=== PATIENT | male | born 1960 | race Caucasian/White ===

== ENCOUNTER 2017-01-17 16:15 | Inpatient (IN) | payer MEDICARE ==
[2017-01-17] MEDS ORDERED: Aspirin 325 MG TAB ONE (16:40)
[2017-01-17] MEDS ORDERED: Acetaminophen 500 MG TAB ONE (16:40)
[2017-01-17 16:42] LABS: #Eosinphils 0.7 thou/uL (0.0-0.7); #Lymphocytes 1.9 thou/uL (1.20-3.40); #Monocytes 0.7 thou/uL (0.11-0.59); #Neutrophils 4.6 thou/uL (1.40-6.50); %Basophils 0.3 % (0.0-1.0); %Eosinophils 8.8 % (0.0-10.0); %Lymphocytes 24.2 % (21.0-51.0); %Monocytes 8.2 % (0.0-10.0); Hematocrit 37.7 % (42.0-52.0); Mean Platelet Volume 6.8 fL (7.4-10.4); Red Blood Cell (RBC) Count 3.76 mill/uL (4.70-6.10); White Blood Cell (WBC) Count 7.9 thou/uL (4.8-10.8)
[2017-01-17 16:59] LABS: Lactic Acid - Sepsis 1.8 mmol/L (0.5-2.2)
[2017-01-17 17:03] LABS: ALT (SGPT) 12 U/L (8-55); AST (SGOT) 18 U/L (5-34); Alkaline Phosphatase 132 U/L (40-150); Anion Gap 16 mmol/L (10-20); BUN (Urea Nitrogen) 10 mg/dL (8.4-25.7); Bilirubin, Total 0.5 mg/dL (0.2-1.2); CK (CPK) 94 U/L (30-200); Calc. Creatinine Clearance 0 mL/min (70-130); Carbon Dioxide 22 mmol/L (22-29); Chloride 106 mmol/L (98-107); Estimated GFR-MDRD Greater than 90; Globulin 3.4 g/dL (2.4-3.5); Protein, Total 6.9 g/dL (6.0-8.3)
[2017-01-17 17:07] LABS: Troponin I Less than 0.010 ng/mL (< 0.028)
--- NOTE | 2017-01-17 17:26 | RAD ---
EXAM: ONE VIEW CHEST 01/17/17 HISTORY: Chest pain and shortness of breath. COMPARISON: 01/13/17. FINDINGS: Portable upright chest demonstrates a normal cardiac silhouette. Pulmonary vessels and hilum are nor mal. The costophrenic angles are clear. No mass. No consolidation. No pneumothorax. Chronic changes of the left clavicle are noted. IMPRESSION: No acute cardiopulmonary process. POS: [facility]
[2017-01-17] MEDS ORDERED: Azithromycin 500 MG in Sodium Chloride 0.9% 250 ML 250 ML IVPB SCH (17:45)
[2017-01-17 17:51] LABS: Bilirubin Negative (Negative); Blood, Urine Trace (Negative); Glucose, Urine (Dipstick) Negative (Negative); Ketone, Urine Trace mg/dL (Negative); Nitrite Negative (Negative); Protein, Urine (Dipstick) Negative (Neg-Trace); Urobilinogen 0.2 mg/dL (0.2-1.0)
[2017-01-17 17:53] LABS: Bacteria/HPF None Seen HPF (None Seen); Hyaline Casts/LPF 4-6 HYALINE CAST LPF (0-3 Hyaline); Squamous Epithelial None Seen HPF (0-3); WBC/HPF 0-3 HPF (0-3)
[2017-01-17] MEDS ORDERED: Azithromycin 500 MG VIAL ONE (18:20)
[2017-01-17 20:08] LABS: Troponin I Less than 0.010 ng/mL (< 0.028)
[2017-01-17] MEDS ORDERED: Acetaminophen 325 MG TAB PO PRN (20:40)
[2017-01-17 20:41] VITALS: BMI 31.1
[2017-01-17] MEDS ORDERED: Benzonatate 100 MG CAP PO PRN (21:25)
[2017-01-17] MEDS ORDERED: Nitroglycerin 0.4 MG TAB (25 Tab Bottle) SL SCH (21:30)
[2017-01-17] MEDS ORDERED: guaiFENesin ER 600 MG TAB PO PRN (21:48)
[2017-01-17] MEDS ORDERED: Gabapentin 300 MG CAP PO SCH (22:30)
[2017-01-17] MEDS ORDERED: Atorvastatin Calcium 40 MG TAB PO SCH (22:30)
[2017-01-17] MEDS ORDERED: Cyclobenzaprine 10 MG TAB PO SCH (22:30)
[2017-01-17] MEDS ORDERED: Famotidine 20 MG TAB PO SCH (22:30)
[2017-01-17] MEDS ORDERED: Amitriptyline HCl 25 MG TAB PO SCH (22:30)
[2017-01-17 22:51] LABS: Troponin I Less than 0.010 ng/mL (< 0.028)
[2017-01-18] MEDS: Levothyroxine Sodium 150 MCG TAB PO SCH (04:07)
[2017-01-18 04:33] LABS: #Eosinphils 0.7 thou/uL (0.0-0.7); #Monocytes 0.5 thou/uL (0.11-0.59); #Neutrophils 3.2 thou/uL (1.40-6.50); %Basophils 0.4 % (0.0-1.0); %Eosinophils 12.8 % (0.0-10.0); %Lymphocytes 17.8 % (21.0-51.0); %Monocytes 8.5 % (0.0-10.0); Hematocrit 33.9 % (42.0-52.0); Red Blood Cell (RBC) Count 3.34 mill/uL (4.70-6.10); White Blood Cell (WBC) Count 5.3 thou/uL (4.8-10.8)
[2017-01-18 05:00] LABS: Anion Gap 9 mmol/L (10-20); BUN (Urea Nitrogen) 6 mg/dL (8.4-25.7); Calc. Creatinine Clearance 163 mL/min (70-130); Calcium 8.6 mg/dL (7.8-10.44); Carbon Dioxide 24 mmol/L (22-29); Chloride 110 mmol/L (98-107); Cholesterol 90 mg/dl (< 200 Desired); Estimated GFR-MDRD Greater than 90; LDL Cholesterol, Calculated 46 mg/dL
[2017-01-18] MEDS: Arformoterol 15 MCG/2 ML NEB NEB SCH ×2 (06:12→20:00)
--- NOTE | 2017-01-18 06:23 | PDOC.FM ---
- Subjective Subjective: Mr. Moss says his chest pain has come back this morning. It is along the lower border of his chest and feels like the pain he has when he is walking and gets chest pain. He continues to cough up mucus. He is otherwise feeling ok. - Objective MAR Reviewed: Yes Vital Signs & Weight: Vital Signs (12 hours) Temp Pulse Resp BP Pulse Ox 01/18/17 06:12 75 16 97 01/18/17 04:04 97.6 F 80 17 123/82 93 L 01/17/17 20:40 98.6 F 79 18 92/58 L 95 Weight Weight 85.049 kg I&O: 01/16/17 01/17/17 01/18/17 06:59 06:59 06:59 Intake Total 380 Balance 380 Result Diagrams: 01/18/17 04:00 01/18/17 04:00 EKG Reviewed by me: Yes Radiology Reviewed by me: Yes <Maria Esther Frost E - Last Filed: 01/18/17 10:33> - Objective Result Diagrams: 01/18/17 04:00 01/18/17 04:00 <Mark Rick E - Last Filed: 01/18/17 10:59> Phys Exam - Physical Examination appears slightly uncomfortable HEENT: moist MMs stoma in anterior neck Neck: supple, full ROM stoma as above diffuse wheezing and rhonchi in BL lung everett, dullness in RUL Cardiovascular: RRR, no significant murmur chest pain not reproducible with palpation Gastrointestinal: soft, non-tender, positive bowel sounds PEG tube in place Musculoskeletal: no edema, pulses present Neurological: non-focal, moves all 4 limbs Psychiatric: normal affect, A&O x 3 Skin: normal turgor <Maria Esther Frost E - Last Filed: 01/18/17 10:33> Dx/Plan (1) Chest pain at rest Code(s): R07.9 - CHEST PAIN, UNSPECIFIED Status: Acute (2) Labile essential hypertension Code(s): I10 - ESSENTIAL (PRIMARY) HYPERTENSION Status: Acute (3) Laryngeal squamous cell carcinoma Code(s): C32.9 - MALIGNANT NEOPLASM OF LARYNX, UNSPECIFIED Status: Acute (4) Pneumonia Code(s): J18.9 - PNEUMONIA, UNSPECIFIED ORGANISM Status: Acute (5) CAD (coronary artery disease) Code(s): I25.10 - ATHSCL HEART DISEASE OF [place] CORONARY ARTERY W/O ANG PCTRS Status: Chronic (6) COPD (chronic obstructive pulmonary disease) Status: Chronic (7) HLD (hyperlipidemia) Code(s): E78.5 - HYPERLIPIDEMIA, UNSPECIFIED Status: Chronic (8) HTN (hypertension) Code(s): I10 - ESSENTIAL (PRIMARY) HYPERTENSION Status: Chronic (9) Hypothyroidism Code(s): E03.9 - HYPOTHYROIDISM, UNSPECIFIED Status: Chronic (10) Personal history of esophageal cancer Code(s): Z85.01 - PERSONAL HISTORY OF MALIGNANT NEOPLASM OF ESOPHAGUS Status: Chronic (11) S/P cardiac catheterization Status: Chronic (12) S/P laryngectomy Status: Chronic - Plan Plan: 1. Community acquired pneumonia, RUL PNA - Diffuse interstitial changes on most recent CXR - Exam consistent with consolidation in RUL - s/p azithromycin and rocephin in ER - Will continue azithromycin and rocephin - Flu negative - Will check urine strep ag 2. Typical chest pain/unstable angina - Known CAD - Recurrence of pain this morning - Repeat cardiac enzymes and EKG remain negative - Nitro patch 0.5 inch relieved pain - Continue ASA - Will consult cardiology, appreciate Dr. Krishna' assistance, patient of Dr. Galeana 3. HTN - Home medications 4. H/o SCC of larynx - Able to tolerate PO - Stoma in place - Peg in place but only flushes, does not use for nutrition at this time 5. CAD - See #2 - Cath in March 2016 showed patent RCA stent and 60% stenosis of LAD - Recently stopped taking Ranexa due to cost and had Imdur dose increased - Appreciate Dr. Krishna' and Kervin's assistance 6. Depression - Home medications 7. COPD - Home nebulizer treatments - Duonebs PRN 8. Macrocytic anemia - B12, RBC folate PPX: Lovenox <Maria Esther Frost E - Last Filed: 01/18/17 10:33> Attending Addendum - Attending Addendum I personally evaluated the patient and discussed the management with Dr. Frost I agree with the History, Examination, Assessment and Plan documented. <Mark Rick E - Last Filed: 01/18/17 10:59>
--- NOTE | 2017-01-18 06:28 | HP-2 ---
CODE STATUS: FULL. PRIMARY CARE PHYSICIAN: Recently has been seeing [facility], but states he wants to reestablish care with [facility]. ATTENDING: Dr. Rick RESIDENT: Yo Timmons M.D. HISTORIAN: Patient/. SPECIALISTS: 1. Dr. Viveros, oncologist in [place]. 2. Dr. Marie, ENT surgeon. 3. Dr. Galeana, Cardiology. CHIEF COMPLAINT: Chest pain with shortness of breath. HISTORY OF PRESENT ILLNESS: Mr. Bobby Moss is a 57-year-old male with past medical history of squ amous cell carcinoma of the larynx status post laryngectomy, radiation and currently getting chemo a nd his last dose was on 01/07/2017, CAD, hypertension who presents with chest pain, fever, and cough . For the last 2 weeks, he has been feeling ill, he began vomiting yesterday and that lasted all da y. He woke up this morning with chest pain that was worsened with ambulation and relieved with rest . The pain is located across both sides of the lower chest. He denies any nausea or diaphoresis wi th the pain, but he did have dizziness. The patient states that he recently switched from Ranexa to isosorbide mononitrate 1 week ago due to cost of the Ranexa. The patient had a cardiac catheteriza tion in 03/2016 that showed patent right coronary artery stent that was placed in 2013 and stable co ronary artery disease. Dr. Galeana as the patient's van loader. The patient also stated that h e had a fever at home yesterday. Oral temperature at home was 101.3. PAST MEDICAL HISTORY: 1. Hypertension. 2. Hyperlipidemia. 3. Hypothyroidism. 4. Coronary artery disease. 5. Squamous cell carcinoma of the larynx. 6. Tracheostomy. PAST SURGICAL HISTORY: 1. Right coronary artery stent placement 3 years ago. 2. Laryngectomy on 01/06/2013. 3. Cardiac catheterization in 03/2016. ALLERGIES: 1. HYDROCHLOROTHIAZIDE. 2. TRAMADOL. MEDICATIONS: 1. Metoprolol tartrate 25 mg p.o. b.i.d. 2. Isosorbide mononitrate 60 mg p.o. daily. 3. Gabapentin 300 mg p.o. t.i.d. 4. Nystatin 500,000 units p.o. 5. Clopidogrel 75 mg p.o. daily. 6. Amlodipine 10 mg p.o. daily. 7. Ranitidine 150 mg p.o. b.i.d. 8. Amitriptyline 25 mg p.o. daily. 9. Valium 10 mg p.o. p.r.n. 10. Levothyroxine 150 mcg p.o. daily. 11. Cyclobenzaprine 10 mg t.i.d. 12. Diclofenac 50 mg p.o. 13. Linden 7.5/325 mg p.o. FAMILY HISTORY: Mother had coronary artery disease and father had brain cancer. SOCIAL HISTORY: Patient is a former smoker, quit 4 years ago, previously had a [id number] history . Denies any alcohol or drug use. The patient is and has 3 children. REVIEW OF SYSTEMS: Twelve-point review of systems including general, HEENT, respiratory, CV, GI, , skin, musculoskeletal, neuro and psych all reviewed and were negative with the exception of fever, chills, nasal congestion, rhinorrhea, cough, shortness of breath, exercise intolerance, chest pain, palpitations, PND, and orthopnea as well as vomiting and nausea. PHYSICAL EXAMINATION: VITAL SIGNS: Blood pressure 109/84, pulse 100, respiratory rate 20, T-max 101.2, pulse ox 95% on 4 liters, current weight 85 mg. GENERAL: The patient is alert and oriented x4, in no acute distress. Well-developed, well-nourishe d, and appropriately interactive. EYES: Pupils equal, round, reactive to light and accommodation. Extraocular muscles intact. Conju nctivae within normal limits. ENT: Tympanic membranes pearly smith without bulging or discharge. Nasal mucosa and oropharynx with in normal limits. NECK: Supple, without lymphadenopathy. Stoma from tracheostomy present. No erythema or signs of i nfection. CARDIOVASCULAR: Regular rate and rhythm. No murmurs or gallops. Radial and pedal pulses equal michael aterally. RESPIRATORY: Normal effort, no retractions. Coarse respiratory breath sounds bilaterally. SKIN: Warm and dry without cyanosis or lesions. ABDOMEN: Soft, nontender, bowel sounds x4. No masses or distention. EXTREMITIES: No clubbing, cyanosis or edema. MUSCULOSKELETAL: Structure and tone within normal limits. Full range of motion. NEUROLOGIC: No focal deficits. Sensation within normal limits. PSYCHIATRIC: Appropriate. LABORATORY DATA AND X-RAY FINDINGS: White blood cell count 7.9, hemoglobin 12.7, hematocrit 37.7, M CV 100, platelets 249. Sodium 140, potassium 3.6, chloride 106, bicarbonate 22, BUN 10, creatinine 0.82, glucose 116, calcium 9.0, total protein 6.9, albumin 3.5, total bilirubin 0.5, AST 18, ALT 12, alkaline phosphatase 132, lactic acid 1.8. Influenza A and B negative. CK 94, CK-MB 1.8. Troponi n is less than 0.01. BNP 42. UA was positive for trace blood, trace leukocytes, trace ketones, and 4-6 hyaline casts. Chest x-ray showed no acute cardiopulmonary processes. ASSESSMENT AND PLAN: A 57-year-old male with cough, fever, and chest pain. 1. Community-acquired pneumonia. Admit to tele, fever, productive cough and indeterminate chest x- ray - comparison to ER visit 4 days ago shows new changes, but no obvious findings, no increase in w trupti blood cell count, treat with azithromycin and Rocephin. Check CBC, CMP, blood cultures. Flu w as negative. Lactate negative. 2. Typical chest pain: With history of stent in 2013. Recently stopped Ranexa due to cost, cathet erization in 03/2016 showed patent RCA stent and stable coronary artery disease. Nitro p.r.n., aspi rin. N.p.o. after midnight in the case that patient is to be stressed tomorrow. 3. Hypertension. Continue home medications. 4. Squamous cell carcinoma of larynx, status post laryngectomy/chemo/radiation. Stoma clean, no si gns of infection. The patient sees Dr. Marie (ENT surgeon) and Dr. Viveros (Oncology). 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 5. Hypothyroidism, status post thyroidectomy. Continue home medications. 6. Macrocytic anemia. Check RBC, folate and B12. 7. Coronary artery disease. Continue home medications. 8. Depression. Continue home medications. 9. Prophylaxis. Lovenox. 10. CODE STATUS: FULL. 11. Activity: ad gill. DISPOSITION AND LENGTH OF HOSPITAL STAY: 2 days. Symptomatic medication will be provided. History and physical exam as well as management discussed with Dr. Rick.
[2017-01-18] MEDS ORDERED: Nitroglycerin 2% Ointment 1 INCH/1 GM Packet TOP PRN (07:45)
[2017-01-18] MEDS: Nystatin 500,000 UNITS/5 ML UDCUP SSW SCH ×2 (08:07→21:58)
[2017-01-18] MEDS: Cyclobenzaprine 10 MG TAB PO SCH ×3 (08:07→21:57)
[2017-01-18] MEDS: Gabapentin 300 MG CAP PO SCH ×3 (08:07→21:56)
[2017-01-18] MEDS: Aspirin 81 mg Enteric Coated Tablet PO SCH (08:07)
[2017-01-18] MEDS: Clopidogrel Bisulfate 75 MG TAB PO SCH (08:07)
[2017-01-18] MEDS: Enoxaparin Sodium 40 MG/0.4 ML SYRINGE SC SCH ×2 (08:08→11:39)
[2017-01-18 08:35] LABS: Troponin I Less than 0.010 ng/mL (< 0.028)
[2017-01-18] MEDS ORDERED: Aspirin 81 mg Enteric Coated Tablet PO SCH (09:00)
--- NOTE | 2017-01-18 17:32 | CON ---
DATE OF CONSULTATION: 01/18/2017 INDICATION FOR CONSULTATION: This is a 57-year-old patient with known coronary artery disease and chest pain. HISTORY OF PRESENT ILLNESS: This is a very unfortunate 57-year-old gentleman, who has a history of neck cancer, who has undergone laryngectomy, who has had a history of coronary artery disease and angioplasty and stent placement to the right coronary artery in 2014. He also underwent repeat cardiac catheterization in 03/2016, which showed a patent stent to the right coronary artery with 10% in-stent restenosis and also had a distal stent, which remained patent. 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 There is a 2 mm vessel and has some mild plaque, but no flow-limiting disease was noted. He did have DAREK grade II flow down the left anterior descending artery with some plaque in the left anterior descending artery. He has some ostial diagonal stenosis about 5 mm in length, otherwise he remained relatively stable and the ejection fraction at that time was about 70%. He did undergo a stress test in 06/2015, which showed no evidence of ischemia. Prior to that, his cardiac catheterization in 2014, this is when he underwent a stent placement to the right coronary artery. He had been treated for chest pain with Ranexa and had been doing very well, but the medication was stopped. He was unable to afford it and then he had noticed for last several days and became worse yesterday when he was in [employer], walking when he developed chest pain, which he describes as being a squeezing type sensation. He did have some nitroglycerin at home, but was 2-3 years old and he did not take this medications, but the pain yesterday was squeezing type pain, also radiated to the left shoulder and up to the left ear area and he presented to the emergency room, his enzymes are unremarkable. EKG is also unremarkable. He is feeling better at this time. He did have one episode of some chest discomfort this morning and he was given nitroglycerin paste and also sublingual nitroglycerin and the pain improved. He did say he was well controlled when he was taking the Ranexa, but was unable to afford this medication. He has not had any other significant problems. He is undergoing chemotherapy for his reoccurrence of his neck cancer. He has already undergone bilateral neck resections. He has had radiation therapy in the past and has a tracheostomy. At this time, he remains stable and EKG is unremarkable. Enzymes are negative. We will continue to monitor him very carefully and will decide which medications to place this gentleman on. PAST MEDICAL HISTORY: Significant for the coronary artery disease, angioplasty , stent placement, throat cancer with chemotherapy. His last chemotherapy was 01/07/2017. He has COPD, he has hypercholesterolemia, hypertension, and depression. PAST SURGICAL HISTORY: He has had a right inguinal hernia repair. He has had back surgery. He has had a laryngectomy in 2014. He has had left elbow surgery x2. He has had peripheral neuropathy. ALLERGIES: He is allergic to TRAMADOL and HYDROCHLOROTHIAZIDE. FAMILY HISTORY: Noncontributory at this time. SOCIAL HISTORY: He stopped smoking. He is . He has children, who are alive and well. He has no significant alcohol use. He remains relatively active. He actually gained weight. He is not losing weight. MEDICATIONS: Include gabapentin 300 mg 2 tablets 3 times a day, aspirin 325 mg a day, metoprolol 25 mg half a tablet q. day, Tirosint 150 mcg capsules once a day; Renexa, he is no longer taken but we will need to resume this medication, he was taking 500 mg twice a day, ranitidine 150 mg b.i.d., prochlorperazine maleate 10 mg daily, promethazine 6.25/codeine 10 mg in 5 mL liquids formation, he was taking 5 mL every 6 hours as needed, amitriptyline 25 mg q. day, Imdur 60 mg q.a.m., MiraLax 17 grams once a day, cyclobenzaprine 10 mg tablets 1 t.i.d., amlodipine 10 mg daily, levofloxacin 500 mg q.24 hours, morphine 30 mg q.12 hours, hydrocodone 7.5/325 mg and also an Elixir. He takes this 4 times a day as needed for pain (he takes 15 mL), pantoprazole 40 mg 1 b.i.d., atorvastatin 40 mg q.p.m., Plavix 75 mg q.a.m. Levaquin, I think, it has been stopped now. He is on Colace 100 mg b.i.d.. Since being in the hospital, he has been placed on the nitroglycerin. PHYSICAL EXAMINATION: GENERAL: Reveals an elderly gentleman, who appears actually older than the stated age. He has a tracheostomy. He closes his trach in order to speak but he is audible and can understand what he is saying. VITAL SIGNS: His blood pressure was 119/77, heart rate is 86, respiratory rate 16. He is afebrile. HEENT: Shows the head to have evidence of bilateral neck dissection. He has a tracheostomy in place. I did not hear any bruit. CHEST: Clear to auscultation without rales, rhonchi or wheezing. CARDIOVASCULAR: Reveals a regular rate and rhythm. Normal S1, S2. I cannot hear S3 nor and S4. There were no rubs noted. ABDOMEN: Soft and nontender. Positive bowel sounds are present. EXTREMITIES: Showed no clubbing, cyanosis or edema. Pedal pulses are present. NEUROLOGIC: The patient appears to be intact. REVIEW OF SYSTEMS: A 12-point review of systems he mainly complains of occasional shortness of breath. He has some occasional coughing. He did have fever 1-2 days prior to being admitted. He has had one episode of having some blood in stools but had none recently. He has had no hematuria or dysuria. He is able to continue to eat. He has occasional nausea and vomiting. He did have some nausea and vomiting 1 or 2 days prior to admission. He has had no musculoskeletal complaints. No neurological complaints. He did say that the chest pain, he experienced on admission to the hospital was somewhat similar to the pain, he had previously undergone a stent placement. LABORATORY DATA: Shows potassium is 3.5, creatinine 0.6, WBC of 5.3, hemoglobin 11.4 and cardiac enzymes are negative. IMPRESSION: 1. Coronary artery disease in the patient with chest pain. The enzymes are negative. EKG is unremarkable. The patient has significant improvement and symptoms while being on the Ranexa, we will resume this medication and see if we can get assistance with the patient to get this medication in order to decrease his anginal type symptoms. 2. History of neck cancer. He is on chemotherapy. He did tell me that this is a recurrence of his cancer. He has been given less than 1 year to live 3. History of hypothyroidism. He will continue on these medications. 4. History of chronic obstructive pulmonary disease. He no longer smokes, but obviously, he has had some damage to the lungs previously. 5. Hypertension, which is under good control at this time. At this time, we will continue the medications. We will also resume his Ranexa and try to get some type of medical systems for this very unfortunate gentleman. MARIANNE
[2017-01-18] MEDS ORDERED: cefTRIAXone\\ROCEPHIN 1 GM in Sodium Chloride 0.9% 100 ML IVPB SCH (17:45)
[2017-01-18] MEDS ORDERED: cefTRIAXone\\ROCEPHIN 1 GM, Syringe 0.4 ML in Sterile Water 9.6 ML SLOW IVP SCH (18:00)
[2017-01-18] MEDS ORDERED: Azithromycin 500 MG in Sodium Chloride 0.9% 250 ML 250 ML IVPB SCH (18:00)
[2017-01-18] MEDS ORDERED: Sodium Chloride 0.9% 10 ML ONE (18:01)
[2017-01-18] MEDS ORDERED: Amitriptyline HCl 25 MG TAB PO SCH (21:00)
[2017-01-18] MEDS ORDERED: Atorvastatin Calcium 40 MG TAB PO SCH (21:00)
[2017-01-18] MEDS ORDERED: Famotidine 20 MG TAB PO SCH (21:00)
[2017-01-18] MEDS ORDERED: Gabapentin 300 MG CAP PO SCH ×2 (22:25→22:30)
[2017-01-19] MEDS: Levothyroxine Sodium 150 MCG TAB PO SCH (06:53)
[2017-01-19] MEDS: Arformoterol 15 MCG/2 ML NEB NEB SCH (07:29)
--- NOTE | 2017-01-19 08:46 | PDOC.FM ---
- Subjective Subjective: Pt reports doing much better than when admitted. Says pain is doing much better on Ranexa. Denies any SOB. Denies any headaches, dizziness. Denies any fever, chills, nausea, vomitting, diarrhea overnight. No other concerns or complaints at this time. -Pt states currently is taking doxycycline per oncologist every day. - Objective MAR Reviewed: Yes Vital Signs & Weight: Vital Signs (12 hours) Temp Pulse Resp BP Pulse Ox 01/19/17 07:29 78 17 95 01/19/17 07:25 97.1 F L 91 20 129/82 95 01/19/17 04:00 98.0 F 86 18 112/75 95 01/19/17 00:05 97.6 F 91 18 97/57 L 93 L I&O: 01/18/17 01/19/17 01/20/17 06:59 06:59 06:59 Intake Total 1175 Output Total 700 Balance 475 Result Diagrams: 01/18/17 04:00 01/18/17 04:00 Radiology Reviewed by me: Yes (No read of pneumonia. Possible RUL pneumonia noted. ) Radiology: CXR: Also possible consolidation in RLL at the base. <Domingo Soler - Last Filed: 01/19/17 08:51> - Objective Vital Signs & Weight: Vital Signs (12 hours) Temp Pulse Resp BP Pulse Ox 01/19/17 07:29 78 17 95 01/19/17 07:25 97.1 F L 91 20 129/82 95 01/19/17 04:00 98.0 F 86 18 112/75 95 I&O: 01/18/17 01/19/17 01/20/17 06:59 06:59 06:59 Intake Total 1175 Output Total 700 Balance 475 Result Diagrams: 01/18/17 04:00 01/18/17 04:00 <Gaurav Cnaada - Last Filed: 01/19/17 12:37> Phys Exam - Physical Examination Has trach site in place Respiratory: no rales, wheezing present diffuse wheezing and rhonchi in both lungs bilaterally. Dull to percussion along RUL Cardiovascular: RRR, no significant murmur, no rub Gastrointestinal: soft, non-tender, no distention, positive bowel sounds Musculoskeletal: no edema, pulses present Neurological: non-focal, normal sensation Psychiatric: normal affect, A&O x 3 Skin: no rash <Domingo Soler - Last Filed: 01/19/17 08:51> Dx/Plan (1) Community acquired pneumonia Code(s): J18.9 - PNEUMONIA, UNSPECIFIED ORGANISM Status: Acute (2) Unstable angina Status: Acute (3) Macrocytic anemia Code(s): D53.9 - NUTRITIONAL ANEMIA, UNSPECIFIED Status: Acute (4) Depression Code(s): F32.9 - MAJOR DEPRESSIVE DISORDER, SINGLE EPISODE, UNSPECIFIED Status : Acute (5) Laryngeal squamous cell carcinoma Code(s): C32.9 - MALIGNANT NEOPLASM OF LARYNX, UNSPECIFIED Status: Acute (6) CAD (coronary artery disease) Code(s): I25.10 - ATHSCL HEART DISEASE OF [place] CORONARY ARTERY W/O ANG PCTRS Status: Chronic (7) COPD (chronic obstructive pulmonary disease) Status: Chronic (8) GERD (gastroesophageal reflux disease) Code(s): K21.9 - GASTRO-ESOPHAGEAL REFLUX DISEASE WITHOUT ESOPHAGITIS Status: Chronic (9) HLD (hyperlipidemia) Code(s): E78.5 - HYPERLIPIDEMIA, UNSPECIFIED Status: Chronic (10) HTN (hypertension) Code(s): I10 - ESSENTIAL (PRIMARY) HYPERTENSION Status: Chronic (11) S/P cardiac catheterization Status: Chronic (12) S/P laryngectomy Status: Chronic (13) Hypothyroidism Code(s): E03.9 - HYPOTHYROIDISM, UNSPECIFIED Status: Chronic - Plan Plan: 1. Community acquired pneumonia, RUL PNA - Diffuse interstitial changes on most recent CXR - Exam consistent with consolidation in RUL - s/p azithromycin and rocephin in ER - Will continue azithromycin and rocephin. Has hx of COPD. Will likely switch to Levaquin upon discharge. Also is taking doxycyline at recs of oncology. - Flu negative - Urine strep ag pending -Blood Cx- NGTD -Pt no requiring oxygen. Likely stable for discharge and continuing oral abx 2. Typical chest pain/unstable angina - Known CAD - Pain better controlled after starting Ranexa again - Cardiac enzymes negative x3 and EKG remain negative - Nitro patch 0.5 inch relieved pain - Continue ASA - Will consult cardiology, appreciate Dr. Krishna' assistance, patient of Dr. Galeana -per Dr. Krishna recs no additional testing needed at this time. -Will consult case management to see if pt can get help with paying for Ranexa since it really helps with his chest pain. 3. HTN - Home medications 4. H/o SCC of larynx - Able to tolerate PO - Stoma in place - Peg in place but only flushes, does not use for nutrition at this time 5. CAD - See #2 - Cath in March 2016 showed patent RCA stent and 60% stenosis of LAD - Recently stopped taking Ranexa due to cost and had Imdur dose increased - Appreciate Dr. Krishna' and Kervin's assistance -restarted ranexa 6. Depression - Home medications 7. COPD - Home nebulizer treatments - Duonebs PRN 8. Macrocytic anemia - B12 normal - RBC folate pending -Possibly start folic acid replacement or recommend a multivitamin 9. Hypothyroidism -TSH elevated -Likely will need outpt follow up to increase dose of levothyroxine PPX: Lovenox <Domingo Soler - Last Filed: 01/19/17 08:51> Attending Addendum - Attending Addendum I personally evaluated the patient and discussed the management with Dr. Soler. I agree with the History, Examination, Assessment and Plan documented above with any addition or exceptions noted below. Patient admitted with chest pain and negative enzyme changes. Cardiology recommends restarting Ranexa therapy and they have arranged for patient to be able to get that medication. He is improved since on it. Denies any symptoms of PNA, and has no fevers, productive cough, CXR findings, or focal lung findings on exam. He does have mild wheezes. More likely to be possible COPD exacerbation , will treat with Levaquin and steroids. Patient stable for discharge home and will follow up with our group in clinic next week. <Gaurav [place] - Last Filed: 01/19/17 12:37>
[2017-01-19] MEDS: Aspirin 81 mg Enteric Coated Tablet PO SCH (09:17)
[2017-01-19] MEDS: Cyclobenzaprine 10 MG TAB PO SCH (09:17)
[2017-01-19] MEDS: Enoxaparin Sodium 40 MG/0.4 ML SYRINGE SC SCH (09:17)
[2017-01-19] MEDS: Nystatin 500,000 UNITS/5 ML UDCUP SSW SCH (09:18)
[2017-01-19] MEDS: Clopidogrel Bisulfate 75 MG TAB PO SCH (09:18)
[2017-01-19 14:02] VITALS: BP 112/72; TEMP 97.7
--- NOTE | 2017-01-20 06:40 | DIS-2 ---
DATE OF ADMISSION: 01/18/2017 DATE OF DISCHARGE: 01/19/2017 RESIDENT: Domingo Soler M.D., PGY-1. ADMITTING ATTENDING: Mark Rick M.D. DISCHARGE ATTENDING: Gaurav Canada M.D. CONSULTATIONS: Dr. Krishna with Cardiology. PROCEDURES: None. IMAGING: He had a chest x-ray on 01/17/2017 in the ER, which showed no acute cardiopulmonary proces s, brought by the ER doctor, he compared this to a previous x-ray and did read it as may be a right upper lobe pneumonia. PRIMARY DIAGNOSES: 1. Community-acquired pneumonia, right upper lobe pneumonia versus chronic obstructive pulmonary di sease exacerbation. 2. Typical chest pain/unstable angina. 3. Hypertension. 4. History of squamous cell cancer of the larynx. 5. Coronary artery disease. 6. Depression. 7. Chronic obstructive pulmonary disease with possible exacerbation. 8. Macrocytic anemia. SECONDARY DIAGNOSES: 1. Hyperlipidemia. 2. Hypothyroidism. 3. Personal history of esophageal cancer status post cardiac catheterization and status post laryng ectomy. NEW MEDICATIONS: Levofloxacin 750 mg p.o. daily and prednisone 40 mg for 5 days. DISCHARGE MEDICATIONS: Amitriptyline 25 mg p.o. at bedtime, arformoterol 15 mcg nebs b.i.d., aspiri n 81 mg daily, atorvastatin 40 mg p.o. at bedtime, benzonatate 200 mg p.o. t.i.d., clopidogrel 75 mg daily, cyclobenzaprine 10 mg p.o. t.i.d., diazepam 2 mg p.o. at bedtime, ranitidine 300 mg p.o. at bedtime, gabapentin 600 mg p.o. t.i.d., isosorbide mononitrate 60 mg Tab-ER 24 hours, levothyroxine 150 mcg p.o., nitroglycerin 0.4 tab sublingual, Nystatin 10 mL SSW b.i.d., pantoprazole 40 mg p.o. b .i.d., guaifenesin 1200 mg p.o. b.i.d., amlodipine 10 mg daily, promethazine DM syrup 5 mL p.o. q.8 hours, diclofenac 50 mg p.o. daily, hydrocodone and acetaminophen 15 mg p.o. q.4 hours, lisinopril 2 0 mg p.o. daily, metoprolol 12.5 mg p.o. b.i.d., morphine sulfate 30 mg p.o. q.12 hours, Ranexa 500 mg p.o. b.i.d. DISCONTINUE MEDICATIONS: We just decreased his dose from isosorbide mononitrate from 120 mg p.o. da carole to 60 mg as he was previously on and we restarted his Ranexa. HISTORY OF PRESENT ILLNESS AND HOSPITAL COURSE: This is a 57-year-old male with a past medical hist ory of squamous cell carcinoma of the larynx status post laryngectomy currently getting radiation an d chemo with his last has been on 01/07/2017. He also has a history of coronary artery disease and has been having fever and cough for the last 2 weeks. He said he vomited yesterday after taking his morphine. Reported pain across the lower side of his chest and said pain was worsened by ambulatio n and relieved by rest. The patient also when he came in, had stopped his Ranexa due to cost, but luke tyler had good success with Ranexa and said he recorded an oral temperature of 103. At this time, we a dmitted him as before we looked at the chest x-ray, it appeared to be normal, thought he might have had a community-acquired pneumonia. He did have diffuse expiratory wheezes and kind of crackles on auscultation of his lungs. We admitted him start him on Rocephin and azithromycin. We put him on t elemetry observation. On EKG trended troponins, they were 0.01 x3. He never had an elevated white blood cell count was within normal limits. His hemoglobin was little low 12.7 to 11.4. His MCV was high at 101. We checked a vitamin B12 which was within normal limits and we have yet to get the RB C folate back. His potassium was low on the at 3.4. During this time, we consulted with his istory of cancer and his history of coronary artery disease. We consulted Dr. Krishna who saw him. Sanya estrada did not think any further testing or procedures needed to be done. She thought that likely the ch est pain was anginal pain and it was likely since he had stopped his Ranexa and recommended that he start his Ranexa. We consulted the case management to help with assistance, he may be help with mon ey to help, so he can afford to pay for Ranexa. Dr. Krishna also was found him some samples and the pa candy stated that she said he could follow up with her when he runs out, she will continue to help h im get Ranexa at this time. At this time, the next day to observation, no acute events on EKG. The patient was doing better. Pain was being well controlled, did not having any fever or chills. No shortness of breath. We decided due to a chest x-ray being read as clear and with the possible pneu monia that might possibly could have a pneumonia with chronic obstructive pulmonary disease exacerba tion. We will switch his antibiotics to oral Levaquin and gave him a dose of prednisone for 5 days on discharge. DISPOSITION: Guarded. DISCHARGE INSTRUCTIONS: 1. Location: He will be discharged home. 2. Diet: Diet is a heart healthy diet. 3. Activities: Activity as tolerated. 4. Followup: He will need to follow up with his oncologist that he was continuing chemotherapy and make sure he is stable enough for chemo and he will want to follow up with [facility] within the next few weeks for hospital followup.
[2017-01-20 14:23] LABS: Folate,Hemolysate 283.4 ng/mL (Not Estab.); Hematocrit 28.4 % (37.5-51.0); RBC Folate Test Component 998 ng/mL (>498)
--- NOTE | 2017-01-25 15:02 | EKG ---
Test Reason : Blood Pressure : / mmHG Vent. Rate : 080 BPM Atrial Rate : 080 BPM P-R Int : 146 ms QRS Dur : 090 ms QT Int : 416 ms P-R-T Axes : 062 059 048 degrees QTc Int : 479 ms Normal sinus rhythm Normal ECG When compared with ECG of 17-JAN-2017 16:22, (Unconfirmed) Premature ventricular complexes are no longer Present Confirmed by JAM BRAGA (2) on 01/25/2017 3:02:05 PM Referred By: AUSTIN Confirmed By:JAM BRAGA
== END 2017-01-19 14:22 | disposition home or self-care (01) | DRG 194 ==
LOC: ERS 16:15 → 2SW 17:36 → OBSVTOIN 01-18 10:41 → 2NO 01-18 12:24
PROVIDERS: ADMIT Internal Medicine; ATTEND Internal Medicine
DX: J18.9 Pneumonia, unspecified organism (principal); J44.0 Chronic obstructive pulmonary disease with (acute) lower respiratory infection; C32.9 Malignant neoplasm of larynx, unspecified; I10 Essential (primary) hypertension; D53.9 Nutritional anemia, unspecified; F32.9 Major depressive disorder, single episode, unspecified; J44.1 Chronic obstructive pulmonary disease with (acute) exacerbation; I25.110 Atherosclerotic heart disease of native coronary artery with unstable angina pectoris; Z93.1 Gastrostomy status; Z95.5 Presence of coronary angioplasty implant and graft; Z87.891 Personal history of nicotine dependence; K21.9 Gastro-esophageal reflux disease without esophagitis; E78.5 Hyperlipidemia, unspecified; E89.0 Postprocedural hypothyroidism
CPT/HCPCS: 36415; 71010; 80048; 80053; 80061; 81003; 81015; 82553; 82607; 82747; 83605; 83880; 84443; 84484; 85025; 87040; 93005; 93010; 94640; 96360; 96365; 96375; A4216; J0456; J0696; J1650; J7050

== ENCOUNTER 2017-01-30 14:02 | Emergency (ER) | payer MEDICARE ==
[2017-01-30 15:37] LABS: #Basophils 0.1 thou/uL (0.0-0.2); #Eosinphils 0.4 thou/uL (0.0-0.7); #Lymphocytes 1.7 thou/uL (1.20-3.40); #Monocytes 1.1 thou/uL (0.11-0.59); %Basophils 0.8 % (0.0-1.0); %Eosinophils 4.3 % (0.0-10.0); %Lymphocytes 16.3 % (21.0-51.0); %Monocytes 10.3 % (0.0-10.0); Hematocrit 39.6 % (42.0-52.0); Mean Platelet Volume 6.5 fL (7.4-10.4); White Blood Cell (WBC) Count 10.3 thou/uL (4.8-10.8)
[2017-01-30 15:44] LABS: Prothrombin Time 13.6 SEC (12.0-14.7)
[2017-01-30 15:55] LABS: Lactic Acid - Sepsis 1.1 mmol/L (0.5-2.2)
[2017-01-30 16:01] LABS: ALT (SGPT) 12 U/L (8-55); AST (SGOT) 16 U/L (5-34); Alkaline Phosphatase 115 U/L (40-150); Anion Gap 13 mmol/L (10-20); BUN (Urea Nitrogen) 9 mg/dL (8.4-25.7); Bilirubin, Total 0.6 mg/dL (0.2-1.2); Calc. Creatinine Clearance 0 mL/min (70-130); Calcium 9.3 mg/dL (7.8-10.44); Carbon Dioxide 23 mmol/L (22-29); Chloride 104 mmol/L (98-107); Estimated GFR-MDRD Greater than 90; Globulin 3.5 g/dL (2.4-3.5); Magnesium 1.9 mg/dL (1.6-2.6); Protein, Total 7.2 g/dL (6.0-8.3)
[2017-01-30 16:04] LABS: Troponin I Less than 0.010 ng/mL (< 0.028)
[2017-01-30] MEDS ORDERED: Dexamethasone 10 MG/ML VIAL ONE (16:16)
[2017-01-30] MEDS ORDERED: Albuterol Sulfate 2.5 mg/0.5 ml Neb ONE ×2 (16:18→16:26)
--- NOTE | 2017-01-30 16:49 | CT ---
CT ANGIOGRAM THORAX WITH IV CONTRAST AND 3D RECONSTRUCTIONS: HISTORY: Hemoptysis. Hemoptysis is progressive getting worse. COMPARISON: 10/06/16. FINDINGS: No filling defects are seen in the pulmonary arteries to suggest a pulmonary embolism. The thoracic a domingo is normal in caliber without evidence of aortic dissection. Minimal atherosclerotic vascular alayna cifications are seen in the coronary arteries. Again noted are chronic biapical lung changes with mild emphysematous changes present. Lungs are othe rwise clear aside from minimal linear densities in the lower lobes posteriorly which may relate to mi nimal areas of scarring. However, these linear densities have improved from prior study. Mediastinal structures have a normal appearance. Gastrostomy tube remains in the stomach. No other interval change. IMPRESSION: 1. No CT evidence of a pulmonary embolus. 2. Mild emphysematous changes and chronic lung changes. POS: [facility]
[2017-01-30] MEDS ORDERED: Pantoprazole 80 MG, Admixture Fee 1 EACH in Sodium Chloride 0.9% 100 ML IVP SCH (17:00)
[2017-01-30] MEDS ORDERED: ISOVUE-370 76%-LOCM 1 ML ONE (17:03)
[2017-01-30] MEDS ORDERED: Morphine 2 mg/2ml in 0.9% NaCl PF SYRINGE ONE (17:29)
[2017-01-30] MEDS ORDERED: Morphine 4 MG/ML VIAL ONE (17:29)
--- NOTE | 2017-03-10 11:21 | EKG ---
Test Reason : Blood Pressure : / mmHG Vent. Rate : 103 BPM Atrial Rate : 103 BPM P-R Int : 134 ms QRS Dur : 088 ms QT Int : 370 ms P-R-T Axes : 066 059 037 degrees QTc Int : 484 ms Sinus tachycardia Possible Left atrial enlargement Borderline ECG Confirmed by CHAZ FOX M.D. ([id number]), supervising film or videotape editor JAYANT ALCANTAR ([id number]) on 03/10/2017 11:20:42 AM Referred By: Confirmed By:CHAZ FOX M.D.
== END 2017-01-30 17:54 | disposition home or self-care (01) ==
LOC: ERS 14:02
DX: R04.2 Hemoptysis (principal); I10 Essential (primary) hypertension; E78.5 Hyperlipidemia, unspecified; J44.9 Chronic obstructive pulmonary disease, unspecified; Z85.819 Personal history of malignant neoplasm of unspecified site of lip, oral cavity, and pharynx; Z87.891 Personal history of nicotine dependence
CPT/HCPCS: 36415; 71275; 80053; 82553; 83605; 83735; 83880; 84484; 85025; 85610; 87040; 87149; 93005; 96361; 96374; 96375; C9113; J1100; J2270; J7050; J7611

== ENCOUNTER 2017-03-02 22:18 | Emergency (ER) | payer MEDICARE ==
[2017-03-02 22:58] LABS: #Eosinphils 0.4 thou/uL (0.0-0.7); #Lymphocytes 1.4 thou/uL (1.20-3.40); #Monocytes 0.6 thou/uL (0.11-0.59); #Neutrophils 5.4 thou/uL (1.40-6.50); %Basophils 0.1 % (0.0-1.0); %Eosinophils 5.1 % (0.0-10.0); %Monocytes 7.3 % (0.0-10.0); Hematocrit 36.8 % (42.0-52.0); Mean Platelet Volume 6.6 fL (7.4-10.4); Red Blood Cell (RBC) Count 3.89 mill/uL (4.70-6.10); White Blood Cell (WBC) Count 7.8 thou/uL (4.8-10.8)
[2017-03-02 23:07] LABS: PTT 33.4 SEC (22.9-36.1); Prothrombin Time 14.1 SEC (12.0-14.7)
--- NOTE | 2017-03-02 23:10 | RAD ---
CHEST ONE VIEW: History: 57-year-old male with history of chest pain. Comparison: 01-17-17 FINDINGS: Inspiration is somewhat less than optimal. Minimal increased linear and interstitial markings bilater ally, evidence for some stable chronic change. No confluent pneumonia, overt edema or pleural effusio n. IMPRESSION: Stable chronic lung changes. No confluent pneumonia or other significant acute process. POS: [facility]
[2017-03-02 23:21] LABS: ALT (SGPT) 16 U/L (8-55); AST (SGOT) 16 U/L (5-34); Alkaline Phosphatase 120 U/L (40-150); Anion Gap 11 mmol/L (10-20); BUN (Urea Nitrogen) 11 mg/dL (8.4-25.7); Bilirubin, Total 0.5 mg/dL (0.2-1.2); Calc. Creatinine Clearance 0 mL/min (70-130); Calcium 9.3 mg/dL (7.8-10.44); Carbon Dioxide 26 mmol/L (22-29); Chloride 105 mmol/L (98-107); Estimated GFR-MDRD 86; Globulin 3.5 g/dL (2.4-3.5); Protein, Total 7.2 g/dL (6.0-8.3)
[2017-03-02 23:22] LABS: Troponin I Less than 0.010 ng/mL (< 0.028)
[2017-03-03] MEDS ORDERED: Morphine 4 MG/ML VIAL ONE ×2 (00:10→01:09)
== END 2017-03-03 02:45 | disposition short-term general hospital (02) ==
LOC: ERS 22:18
DX: J95.01 Hemorrhage from tracheostomy stoma (principal); E03.9 Hypothyroidism, unspecified; J44.9 Chronic obstructive pulmonary disease, unspecified; E78.5 Hyperlipidemia, unspecified; I10 Essential (primary) hypertension; Z87.891 Personal history of nicotine dependence; Z79.02 Long term (current) use of antithrombotics/antiplatelets; Z79.891 Long term (current) use of opiate analgesic; Z79.82 Long term (current) use of aspirin; Z79.899 Other long term (current) drug therapy
CPT/HCPCS: 71010; 80053; 82553; 84484; 85025; 85610; 85730; 93005; 96361; 96374; 96376; J2270

== ENCOUNTER 2017-03-10 12:41 | Inpatient (IN) | payer MEDICARE ==
--- NOTE | 2017-03-10 13:37 | RAD ---
CHEST TWO VIEWS: History: Evaluation for foreign body. Comparison: 10-06-16 FINDINGS: Heart size and mediastinum are within normal limits. There are some parenchymal changes which have de veloped in the right upper lobe, suggestive of some early infiltrate. I do not see a definitely radio paque foreign body. IMPRESSION: Early right upper lobe infiltrate. POS: [facility]
--- NOTE | 2017-03-10 13:42 | RAD ---
TWO VIEW NECK SOFT TISSUE SERIES: INDICATIONS: Trache complication; rule out foreign body. FINDINGS: There are numerous radiopaque coils overlying the submental region bilaterally. There is effacement of the aerodigestive tract from the level of the inferior oropharynx to the region of the expected moran bglottic tracheal air column. This also effaces the epiglottis and makes the prevertebral soft tissu e stripe indistinguishable. IMPRESSION: 1. Abnormal soft tissue opacification of the aerodigestive tract from the region of the oropharynx t o the subglottic tracheal air column. This may relate to inflammation and/or malignancy. 2. There are numerous metallic coils overlying the submental region bilaterally. Recommend clinical correlation. POS: [facility]
--- NOTE | 2017-03-10 16:07 | CT ---
CTA THORAX WITH CONTRAST: (Computed Tomographic Angiography, chest (noncoronary) with contrast material, and image post process ing) (PE protocol) DATE: 03/10/2017 HISTORY: A 57-year-old male with hypoxia. History of stage IV lung cancer. COMPARISON: CT pulmonary angiogram from 01/30/2017. TECHNIQUE: IV injection of iodinated contrast: [id number]. Scan acquisition timing attempted to coincide with iodinated contrast bolus reaching maximal density in pulmonary arteries. 3D MIP reconstructions. FINDINGS: As previously demonstrated, there is a midline anterior soft tissue defect in the lower neck/upper ch est, widely communicating with the anterior aspect of the uppermost trachea. The larynx superior to that is absent. There is currently no tracheostomy appliance visible. Instead, there is a long, thi n tube that traverses the lumen of the upper edge of this tracheostomy defect and descends the esopha aixa to the level of the midthoracic spine. There is no thoracic aortic aneurysm or dissection. No p ulmonary thromboembolism. There is a new finding of a transversely horizontally oriented, linear, tu bular structure, measuring approximately 2.5 x 0.5 cm (axial image 45 of 173, series 5), which appear s to be a foreign body retained catheter, with one end overlying the upper esophagus and then shelby ing the space directly to the left posterior aspect of the trachea, with the anterior portion very cl ose to and possibly overlapping the very proximal portion of the left common carotid artery. This wa s not present on 01/30/2017. There is another new finding of an approximately 2.5 x 1.5 x 2 cm, noncalcified, nodular, mass-like o pacity in the posterior segment of the right upper lobe. This is surrounded by new, somewhat severe ground glass opacities. There is plate-like atelectasis or scar in the adjacent superior segment of the right lower lobe. Em physematous changes in the lungs bilaterally. No pleural effusion or pneumothorax. IMPRESSION: 1. Intraluminal esophageal thin catheter, entering through the tracheostomy defect, with the distal tip in the mid thoracic esophagus. 2. Another new short catheter-like density in the left upper mediastinum, between the trachea and th e esophagus, as mentioned above, very close to the cervicothoracic junction. The exact etiology of t his apparent foreign body is uncertain, perhaps a dislodged catheter fragment. 3. New infiltrate in the posterior segment of the right upper lobe, surrounding a focal mass-like op acity. This mass could be primary lung cancer or pneumonia. 4. Status post total laryngectomy. maurice[] POS: [facility]
[2017-03-10] MEDS ORDERED: Cefepime 2 GM VIAL ONE (16:37)
[2017-03-10] MEDS ORDERED: Sodium Chloride 0.9% 100 ML ONE (16:38)
[2017-03-10 16:44] LABS: #Eosinphils 0.5 thou/uL (0.0-0.7); #Lymphocytes 1.3 thou/uL (1.20-3.40); #Monocytes 0.8 thou/uL (0.11-0.59); #Neutrophils 4.4 thou/uL (1.40-6.50); %Basophils 0.7 % (0.0-1.0); %Eosinophils 6.6 % (0.0-10.0); %Lymphocytes 19.3 % (21.0-51.0); %Monocytes 10.8 % (0.0-10.0); %Neutrophils 62.7 % (42.0-75.0); Hemoglobin 8.5 g/dL (14.0-18.0); Mean Corpuscular HGB CONC 33.2 g/dL (32.0-36.0); Mean Corpuscular Hemoglobin 29.3 pg (27.0-31.0); Mean Corpuscular Volume 88.4 fl (80.0-94.0); Mean Platelet Volume 6.3 fL (7.4-10.4); Platelet Count 349 thou/uL (130-400); RBC Distribution Width 11.7 % (11.5-14.5); Red Blood Cell (RBC) Count 2.91 mill/uL (4.70-6.10)
[2017-03-10 16:56] LABS: ALT (SGPT) 9 U/L (8-55); AST (SGOT) 16 U/L (5-34); Albumin 3.1 g/dL (3.5-5.0); Alkaline Phosphatase 106 U/L (40-150); Anion Gap 15 mmol/L (10-20); BUN (Urea Nitrogen) 9 mg/dL (8.4-25.7); Bilirubin, Total 0.5 mg/dL (0.2-1.2); Calc. Creatinine Clearance 0 mL/min (70-130); Carbon Dioxide 25 mmol/L (22-29); Chloride 102 mmol/L (98-107); Estimated GFR-MDRD Greater than 90; Globulin 3.1 g/dL (2.4-3.5); Glucose 99 mg/dL (70-105); Potassium 3.6 mmol/L (3.5-5.1); Protein, Total 6.2 g/dL (6.0-8.3); Sodium 138 mmol/L (136-145)
[2017-03-10 19:33] VITALS: BMI 28.3
[2017-03-10] MEDS ORDERED: Ondansetron ODT 4 MG TAB SL PRN (19:36)
[2017-03-10] MEDS ORDERED: Acetaminophen 325 MG TAB PO PRN (19:36)
[2017-03-10] MEDS ORDERED: Ondansetron HCl/PF 4 MG/2 ML Vial IVP PRN (19:36)
[2017-03-10] MEDS ORDERED: Morphine 4 MG/ML VIAL SLOW IVP PRN (23:18)
[2017-03-10] MEDS: Sodium Chloride 0.9% 1,000 ML IV SCH (23:49)
[2017-03-10] MEDS: Vancomycin HCl 1 GM in Premix Bag 1 BAG IVPB SCH (23:50)
[2017-03-11] MEDS ORDERED: Aminocaproic Acid 5 GM/20 ML VIAL FS PRN (00:38)
[2017-03-11] MEDS ORDERED: Diabetic Tussin 200 MG/10 ML UDCUP PER TUBE PRN (00:38)
[2017-03-11] MEDS ORDERED: Oxymetazoline HCl 0.05% ( 15 ML ) NASAL PRN (00:38)
[2017-03-11] MEDS ORDERED: Hydrocodone-Acetamin 15 ML UDCUP PER TUBE PRN (00:38)
[2017-03-11] MEDS ORDERED: Cefepime 2 GM, Syringe 2.5 ML in Sterile Water 10 ML SLOW IVP SCH (04:00)
[2017-03-11] MEDS: Levothyroxine 150 MCG TAB PER TUBE SCH (05:09)
[2017-03-11 05:25] LABS: #Eosinphils 0.4 thou/uL (0.0-0.7); #Lymphocytes 1.3 thou/uL (1.20-3.40); #Monocytes 0.6 thou/uL (0.11-0.59); #Neutrophils 4.8 thou/uL (1.40-6.50); %Basophils 0.3 % (0.0-1.0); %Eosinophils 5.5 % (0.0-10.0); %Lymphocytes 18.5 % (21.0-51.0); %Monocytes 8.9 % (0.0-10.0); %Neutrophils 66.9 % (42.0-75.0); Hemoglobin 8.6 g/dL (14.0-18.0); Mean Corpuscular HGB CONC 33.2 g/dL (32.0-36.0); Mean Corpuscular Hemoglobin 30.8 pg (27.0-31.0); Mean Corpuscular Volume 92.8 fl (80.0-94.0); Mean Platelet Volume 6.9 fL (7.4-10.4); Platelet Count 353 thou/uL (130-400); RBC Distribution Width 12.5 % (11.5-14.5); White Blood Cell (WBC) Count 7.2 thou/uL (4.8-10.8)
--- NOTE | 2017-03-11 07:25 | HP-2 ---
CODE STATUS: FULL. PRIMARY CARE PHYSICIAN: Dr. Soler. ATTENDING: Dr. Gm Garcia. RESIDENT: Dr. Ankita Porter. HISTORIAN: The patient/patient's . SPECIALISTS: Dr. Viveros, Oncology; and Dr. Marie, ENT. CHIEF COMPLAINT: Misplaced prosthesis of tracheostomy. HISTORY OF PRESENT ILLNESS: Patient is a 57-year-old male with past medical history of laryngeal and esophageal cancer, status post radiation with a tracheostomy in place. The patient's reports he has a speaking valve at his stoma site, and yesterday night was messing with it and readjusting it; however, this morning when he woke up, it was gone. He came to the ED and through imaging was found to have this prosthesis possibly lodged into his esophagus. Incidentally, he was found to have a right upper lobe infiltrate on CT and chest x-ray. The patient denies trouble breathing or swallowing. No history of cough or fever at home, but was recently admitted and he was seen for a laryngeal bleed from cancer. They were discharged a couple of days ago. In the ER, he was given Levaquin and cefepime. PAST MEDICAL HISTORY: 1. Hypertension. 2. History of squamous cell carcinoma of the larynx. 3. Coronary artery disease. 4. Depression. 5. Chronic obstructive pulmonary disease. 6. Microcytic anemia. 7. Hyperlipidemia. 8. Hypothyroidism. 9. History of esophageal cancer. PAST SURGICAL HISTORY: 1. Laryngectomy. 2. Heart catheterization. 3. Right coronary stent. 4. Back surgery. 5. Elbow surgery x2. 6. Right groin hernia repair. ALLERGIES: HYDROCHLOROTHIAZIDE and TRAMADOL. MEDICATIONS: 1. Amitriptyline 25 mg. 2. Arformoterol 15 mcg b.i.d. 3. Aspirin 81 mg. 4. Atorvastatin 40 mg. 5. Benzonatate 200 mg t.i.d. 6. Plavix has been held since last admission of bleeding. 7. Cyclobenzaprine 10 mg t.i.d. 8. Diazepam 2 mg daily. 9. Ranitidine 300 mg. 10. Gabapentin 600 mg t.i.d. 11. Isosorbide mononitrate 60 mg daily. 12. Synthroid 150 mcg. 13. Nitro 0.4 mg sublingual. 14. Nystatin 10 mL swish and swallow b.i.d. 15. Pantoprazole 40 mg b.i.d. 16. Guaifenesin 1200 mg b.i.d. 17. Amlodipine 10 mg daily. 18. Promethazine 5 mL q.8 hours. 19. Diclofenac 50 mg. 20. [place]. 21. Lisinopril 20 mg. 22. Metoprolol 12.5 mg b.i.d. 23. Morphine sulfate 30 mg b.i.d. 24. Ranexa 500 mg b.i.d. FAMILY HISTORY: Mother with CAD; father, brain cancer. SOCIAL HISTORY: Quit smoking 5 years ago. Seldom alcohol use and denies drug use. and lives at home. REVIEW OF SYSTEMS: A 10-point review of systems was performed and findings as described above in HPI. Other pertinent review of systems as follows. RESPIRATORY: No shortness of breath or congestion. ENT: No nasal congestion, rhinorrhea, sore throat. GI: No nausea, vomiting, diarrhea, or constipation. GENITOURINARY: No dysuria. SKIN: No rashes or lesions. MUSCULOSKELETAL: Pain in neck and head. PHYSICAL EXAMINATION: VITAL SIGNS: Blood pressure 91/62, pulse 84, respiratory rate 24, T-max 98.0, pulse ox 83% on room air, current weight 41.72 kilograms. GENERAL: The patient is alert and oriented x4, in no acute distress. Well- developed, is not able to speak due to lack of his speaking valve, so communicates via handwriting. EYES: PERRLA, EOMI. ENT: Oropharynx within normal limits. NECK: Stoma in place; stoma site clean, dry and intact, no oozing or redness around the site. CARDIOVASCULAR: Regular rate and rhythm. No murmurs. Radial pulses 2+. RESPIRATORY: Normal effort and no retractions. Right upper lung with diminished breath sounds. SKIN: Warm and dry. ABDOMEN: Soft and nontender. EXTREMITIES: No clubbing, cyanosis, or edema. MUSCULOSKELETAL: Structure within normal limits and tone within limits. NEUROLOGIC: No focal deficits. GCS 15. PSYCHIATRIC: Appropriate. LABORATORY DATA: CBC, white blood cell count 7.0, hemoglobin 8.5, hematocrit 29.7, platelets 249. Chemistries, sodium 138, potassium 3.6, chloride 102, bicarbonate 25, BUN 9, creatinine 0.86, glucose 99, GFR greater than 90, calcium 9.0, total protein 6.2, albumin 3.1, AST 16, ALT 9, alkaline phosphatase 106, and total bilirubin 0.5. Flu A and B negative. Chest x-ray shows early right upper lobe infiltrate. Soft tissue neck x-ray shows soft tissue opacification, likely related to malignancy and metallic coils in submental area bilaterally. Chest CTA shows intraluminal esophageal catheter in place and foreign body (short catheter) in the left upper mediastinum as well as right upper lobe posterior infiltrate in the lung, concern for primary lung cancer versus pneumonia. ASSESSMENT AND PLAN: 1. Foreign body in the mediastinum. ENT has been consulted. Dr. Whitaker to see in the morning. Recommends n.p.o. and IV treatment of possible pneumonia for 2 days before doing the scope. The foreign body likely in esophagus. His respiratory status is stable, is 99% on room air at this time, in the beginning was 88%, but with the use of humidified oxygen has improved. We will continue humidified oxygen and respiratory therapy to monitor. 2. Right upper lobe pneumonia. The patient was hospitalized within the last 2 weeks. We will give broad-spectrum coverage, cefepime and Levaquin, and we will add vancomycin. We will give DuoNeb and home inhalers. Blood cultures pending. 3. Esophageal cancer. Reports he is on chemo, but the tumor burden is worsening. He has been coughing up blood clots. She is about to start immunotherapy. We will have suctioning at bedside and patient was told to alert the nurse if difficulty breathing or choking feeling. We will continue morphine for pain control and Flexeril. Since patient is n.p.o., we will use a PEG tube placement for medication administration. 4. Hypertension. We will give home medications via PEG tube. 5. Hyperlipidemia. We will give home medications via PEG tube. 6. Hypothyroidism. We will give Synthroid via PEG tube. 7. Coronary artery disease, status post stent. The patient is not reporting any pain. Will have nitro sublingual and hold aspirin at this time due to recent bleed and low hemoglobin. 8. Microcytic anemia, likely associated with recent bleed. Unsure of baseline. We will continue to monitor and plan to transfuse if less than 7. 9. Deep vein thrombosis prophylaxis. We will hold anticoagulation before the procedure, due to recent bleed SCDs in place. The patient encouraged to walk daily. Disposition and length of hospital stay is 1-2 days. Symptomatic medications will be provided. History and physical exam as well as management discussed with Dr. Gm Garcia. MARIANNE
--- NOTE | 2017-03-11 07:54 | PDOC.FM ---
- Subjective Subjective: Bobby Moss has no complaints this morning, he had no acute events overnight. - Objective MAR Reviewed: Yes Vital Signs & Weight: Vital Signs (12 hours) Temp Pulse Resp BP Pulse Ox 03/11/17 05:12 98.5 F 75 20 99/64 99 03/11/17 00:40 98.2 F 84 20 118/76 96 03/10/17 20:00 98.9 F 79 20 94 L Weight Weight 79.549 kg Result Diagrams: 03/11/17 03:29 03/10/17 14:20 <Yo Timmons - Last Filed: 03/11/17 09:35> - Objective Vital Signs & Weight: Vital Signs (12 hours) Temp Pulse Resp BP BP BP Pulse Ox 03/11/17 11:58 98.8 F 81 18 100/66 95 03/11/17 08:00 98.5 F 77 20 03/11/17 07:59 77 101/68 03/11/17 05:12 98.5 F 75 20 99/64 99 Weight Admit Weight 79.56 kg Weight 79.56 kg Result Diagrams: 03/11/17 03:29 03/10/17 14:20 <Sammi Wesley - Last Filed: 03/11/17 12:57> Phys Exam - Physical Examination Constitutional: NAD HEENT: moist MMs, sclera anicteric Neck: supple, full ROM stoma site clean dry and intact Rhonchi in the RUL Cardiovascular: RRR, no significant murmur Gastrointestinal: soft, non-tender Musculoskeletal: no edema Neurological: non-focal, moves all 4 limbs Psychiatric: normal affect, A&O x 3 <Yo Timmons - Last Filed: 03/11/17 09:35> Dx/Plan (1) Foreign body Code(s): [id number] - Status: Acute Plan: Dr. Whitaker with ENT has been consulted, recommended making patient NPO and treating PNA with IV Abx for 2 days prior to him scoping pt. -patients respiratory status is stable, continue humidified o2 and respiratory therapy (2) Right upper lobe pneumonia Code(s): J18.1 - LOBAR PNEUMONIA, UNSPECIFIED ORGANISM Status: Acute Plan: Recent hospitalization within the last 10 days -treat with broad spectrum abx-vancomycin, cefepime, and levofloxacin -continue duonebs and home inhalers -blood cx pending (3) Esophageal cancer Status: Acute Plan: Pt reports he is on chemo, but tumor burden is worsening -has been coughing up blood clots lately -will be starting immunotherapy soon -suctioning at bedside and alert nurse with coughing up damaris blood -continue morphine for pain control (4) CAD (coronary artery disease) Code(s): I25.10 - ATHSCL HEART DISEASE OF [place] CORONARY ARTERY W/O ANG PCTRS Status: Chronic Plan: S/p stent -hold aspirin at this time due to bleed (5) HLD (hyperlipidemia) Code(s): E78.5 - HYPERLIPIDEMIA, UNSPECIFIED Status: Chronic Plan: continue home meds via PEG (6) HTN (hypertension) Code(s): I10 - ESSENTIAL (PRIMARY) HYPERTENSION Status: Chronic Plan: continue home meds via PEG, monitor vitas (7) Hypothyroidism Code(s): E03.9 - HYPOTHYROIDISM, UNSPECIFIED Status: Chronic Plan: Continue home meds via peg <Yo Timmons - Last Filed: 03/11/17 09:35> Attending Addendum - Attending Addendum I personally evaluated the patient and discussed the management with Dr. Timmons. I agree with the History, Examination, Assessment and Plan documented above with any addition or exceptions noted below. The patient is being treated with broad spectrum antibiotics for HCAP. Possible new lung nodule noted on CT scan. Dr. Timmons will consult with pulmonolgy. Will also try to contact patient's oncologis, Dr. Viveros, in [place] to discuss case. <Sammi Wesley - Last Filed: 03/11/17 12:57>
[2017-03-11] MEDS: Morphine 4 MG/ML VIAL SLOW IVP PRN (07:56)
[2017-03-11] MEDS: predniSONE 20 MG TAB PO SCH (07:57)
[2017-03-11] MEDS: Cyclobenzaprine 10 MG TAB PER TUBE SCH ×3 (07:58→21:36)
[2017-03-11] MEDS: Pantoprazole 40 MG GRANULES PACKET PER TUBE SCH ×2 (07:58→10:03)
[2017-03-11] MEDS: Sodium Chloride 0.9% 1,000 ML IV SCH ×2 (07:59→13:57)
[2017-03-11] MEDS: Amlodipine 10 MG TAB PER TUBE SCH (07:59)
[2017-03-11] MEDS: Arformoterol 15 MCG/2 ML NEB NEB SCH ×2 (08:00→20:08)
[2017-03-11] MEDS: Metoprolol Tartrate 25 MG TAB PER TUBE SCH ×2 (08:00→21:38)
[2017-03-11] MEDS: Lisinopril 20 MG TAB PER TUBE SCH (08:00)
[2017-03-11] MEDS ORDERED: Vancomycin HCl 1 GM in Premix Bag 1 BAG IVPB SCH (09:00)
[2017-03-11] MEDS: Vancomycin HCl 1 GM in Premix Bag 1 BAG IVPB SCH (10:03)
[2017-03-11] MEDS: Cefepime 2 GM in Syringe 12.5 ML SLOW IVP SCH ×2 (12:51→21:36)
[2017-03-11] MEDS ORDERED: Non-Formulary Item 1 EACH (Ranitidine Hcl [Ranitidine Hcl] 300 MG) PER TUBE SCH (21:00)
[2017-03-11] MEDS: Amitriptyline HCl 25 MG TAB PER TUBE SCH (21:36)
[2017-03-11] MEDS: Atorvastatin Calcium 40 MG TAB PER TUBE SCH (21:36)
[2017-03-11] MEDS: Famotidine 20 MG TAB PER TUBE SCH (21:37)
[2017-03-11] MEDS ORDERED: Sodium Chloride 0.9% 1,000 ML IV SCH (23:59)
--- NOTE | 2017-03-12 00:19 | CON ---
DATE OF CONSULTATION: 03/11/2017 SERVICE: Pulmonary Medicine. REASON FOR CONSULTATION: Foreign body, pulmonary mass. HISTORY OF PRESENT ILLNESS: Mr. Moss is an unfortunate 57-year-old white male with past medical history significant for head and neck cancer. This was complicated by bleeding episode. He ended up undergoing a catheterization procedure in which they went up through his groin. There was a stent or some sort of a sherron placed in the lingual artery. This was able to successfully stop the bleeding. The patient was eating some food at a restaurant recently. He has a speaking valve that was in place. He lost a speaking valve when he went to the bathroom. He does not know exactly where it went. He had the speaking valve replaced. He had a CT scan that was done recently. When it was compared to prior one, there was 2 new foreign bodies that were identified. The first one could be some sort of a device in the lingual artery. The second one was a very small catheter/wire like device that was extending from the trachea into the esophagus by about 2-3 cm. The patient did not have a speaking valve and when he went down for the CT scan today. Otherwise, the patient is in his usual state of health. He denies any current fevers, chills, nausea, vomiting or chest discomfort. He has no increased work of breathing. PAST MEDICAL HISTORY: 1. Hypertension. 2. Dyslipidemia. 3. Coronary artery disease. 4. History of squamous cell carcinoma of the larynx. 5. Major depressive disorder. 6. Chronic obstructive pulmonary disease. 7. Microcytic anemia. 8. Hypothyroidism. 9. Esophageal cancer. PAST SURGICAL HISTORY: 1. Laryngectomy with a speaking valve in place. 2. Cardiac catheterization. 3. Percutaneous coronary intervention of the RCA. 4. Back surgery. 5. Elbow surgery x2. 6. Right groin hernia repair. ALLERGIES: HYDROCHLOROTHIAZIDE, TRAMADOL. MEDICATIONS: List of his inpatient medications were reviewed. No specific updates were made at this time. FAMILY HISTORY: Noncontributory. SOCIAL HISTORY: He quit smoking 5 years ago. Prior to that, he had a 40-pack- year history of smoking. He seldom uses any alcohol and denies any illicit drugs. He has no exposure to chemicals, dust asbestos or tuberculosis. He is and lives at home. He has a very devoted family including a daughter who is coming up right now to talk to me about the anatomy that we see on the CT scan. REVIEW OF SYSTEMS: General, head, ears, eyes, nose, throat, cardiovascular, respiratory, GI, , musculoskeletal, neurologic and skin is negative except as mentioned in the HPI. PHYSICAL EXAMINATION: VITAL SIGNS: Afebrile, pulse 95, blood pressure 93/60, respirations 18, saturation 99% on 28% FIO2 via T-collar mask. HEENT: Normocephalic, atraumatic. Sclerae are white, conjunctivae pink. Oral and nasal mucosa is moist without lesions. We can say there is a laryngectomy present. There is a speaking valve identified in the proximal trachea. Slightly deeper to that, there is a small mass and inflammatory tissue likely hiding this wire lesion that is extending into the trachea. There is also a different foreign body that may very well be of the lingular artery. LUNGS: Decent air entry. There is a slightly prolonged expiratory phase and I hear rhonchi. Otherwise, there is no wheezing or crackles appreciated. HEART: Normal rate, regular. ABDOMEN: Soft, nontender, nondistended, bowel sounds positive. MUSCULOSKELETAL: No cyanosis or clubbing. No pitting in the bilateral lower extremities. NEUROLOGIC: Grossly nonfocal. IMAGING: CT of the chest demonstrates no evidence of pulmonary embolism. There is a new infiltrate/pulmonary nodule/mass in the right upper lobe in the posterior segment. There is 2 foreign bodies previously noted and discussed earlier. Soft tissue of the neck demonstrates numerous metallic coils overlying the submental region bilaterally. Abnormal soft tissue opacification in the region of the oropharynx. His chest x-ray demonstrates a right upper lobe infiltrate, possible. ASSESSMENT: 1. Pulmonary nodule. 2. Status post laryngectomy. 3. Foreign body, possible. PLAN: I am planning on doing a bronchoscopy tomorrow. This will be performed under general anesthesia. We will do a brush wash and biopsy under fluoroscopy. Regarding this foreign body, I am going to touch base with the daughter and discuss the patient's anatomy. We may postpone the procedure to correspond with Dr. Whitaker's planed procedure. 70 minutes have been devoted to this patient in various activities. For at least half of this time, I was at the bedside in direct patient interaction or coordinating care with the care team. For the remainder of the time I was immediately available to the patient in the hospital unit. MARIANNE
[2017-03-12] MEDS: Vancomycin HCl 1 GM in Premix Bag 1 BAG IVPB SCH ×2 (00:26→12:53)
[2017-03-12] MEDS: Sodium Chloride 0.9% 1,000 ML IV SCH ×4 (00:27→21:38)
[2017-03-12] MEDS: Morphine 4 MG/ML VIAL SLOW IVP PRN (00:31)
[2017-03-12] MEDS: Levothyroxine 150 MCG TAB PER TUBE SCH (05:40)
[2017-03-12] MEDS: Metoprolol Tartrate 25 MG TAB PER TUBE SCH ×2 (05:54→21:41)
[2017-03-12 06:02] LABS: #Eosinphils 0.1 thou/uL (0.0-0.7); #Monocytes 0.5 thou/uL (0.11-0.59); #Neutrophils 3.6 thou/uL (1.40-6.50); %Basophils 0.6 % (0.0-1.0); %Eosinophils 1.1 % (0.0-10.0); %Lymphocytes 18.7 % (21.0-51.0); %Monocytes 10.3 % (0.0-10.0); %Neutrophils 69.3 % (42.0-75.0); Hemoglobin 8.3 g/dL (14.0-18.0); Mean Corpuscular HGB CONC 32.8 g/dL (32.0-36.0); Mean Corpuscular Hemoglobin 30.3 pg (27.0-31.0); Mean Corpuscular Volume 92.5 fl (80.0-94.0); Mean Platelet Volume 6.7 fL (7.4-10.4); Platelet Count 369 thou/uL (130-400); RBC Distribution Width 12.5 % (11.5-14.5); Red Blood Cell (RBC) Count 2.74 mill/uL (4.70-6.10); White Blood Cell (WBC) Count 5.2 thou/uL (4.8-10.8)
--- NOTE | 2017-03-12 06:49 | PDOC.FM ---
- Subjective Subjective: Mr. Moss is doing well this morning, seen at bedside. He has no complaints. No acute events over night. Denies fever, chest pain, dyspnea, lightheadedness, n/v/d. Daughter was present in room. Dr. Jaquez saw patient and spoke to daughter last night close to midnight. Patient was being taken down for bronchoscopy after I examined patient. Daughter states that she would attempt to contact ENT in [place] and Oncologist to have them send CT records to [facility]. - Objective MAR Reviewed: Yes Vital Signs & Weight: Vital Signs (12 hours) Temp Pulse Resp BP Pulse Ox 03/12/17 04:00 97.5 F L 77 20 92/65 98 03/12/17 00:00 98.3 F 84 20 102/66 96 03/11/17 20:08 95 18 99 03/11/17 20:00 97.9 F 95 18 93/60 95 Weight Admit Weight 79.56 kg Weight 79.56 kg I&O: 03/10/17 03/11/17 03/12/17 06:59 06:59 06:59 Intake Total 489 Balance 489 Result Diagrams: 03/12/17 05:24 03/10/17 14:20 <Yo Timmons - Last Filed: 03/12/17 09:12> - Objective Vital Signs & Weight: Vital Signs (12 hours) Temp Pulse Resp BP BP Pulse Ox 03/12/17 12:47 101/68 03/12/17 12:45 74 103/70 03/12/17 12:21 98.1 F 80 14 116/76 96 03/12/17 08:13 97.6 F 73 16 75/50 L 99 03/12/17 07:13 78 14 93 L 03/12/17 04:00 97.5 F L 77 20 92/65 98 Weight Admit Weight 79.56 kg Weight 79.56 kg I&O: 03/11/17 03/12/17 03/13/17 06:59 06:59 06:59 Intake Total 489 Balance 489 Result Diagrams: 03/12/17 05:24 03/10/17 14:20 <Sammi Wesley - Last Filed: 03/12/17 13:11> Phys Exam - Physical Examination Constitutional: NAD HEENT: moist MMs, sclera anicteric Neck: supple, full ROM stoma-no change Respiratory: no wheezing, no rales, no rhonchi, clear to auscultation bilateral Cardiovascular: RRR, no significant murmur Gastrointestinal: soft, non-tender Musculoskeletal: no edema Neurological: non-focal, moves all 4 limbs Psychiatric: normal affect, A&O x 3 <Yo Timmons - Last Filed: 03/12/17 09:12> Dx/Plan (1) Foreign body Code(s): [id number] - Status: Acute Plan: Dr. Whitaker with ENT has been consulted, recommended making patient NPO and treating PNA with IV Abx for 2 days prior to him scoping pt. -patients respiratory status is stable, continue humidified o2 and respiratory therapy -pulmonology consulted, Dr. Jaquez, appreciate recs, poss bronch today after confirming plan with Dr. Whitaker (2) Right upper lobe pneumonia Code(s): J18.1 - LOBAR PNEUMONIA, UNSPECIFIED ORGANISM Status: Acute Plan: Recent hospitalization within the last 10 days -treat with broad spectrum abx-vancomycin, cefepime, and levofloxacin -continue duonebs and home inhalers -blood cx pending -Dr. Jaquez with Pulmonology consulted, pt NPO, possible bronchoscopy today (3) Esophageal cancer Status: Acute Plan: Pt reports he is on chemo, but tumor burden is worsening -has been coughing up blood clots lately -will be starting immunotherapy soon -suctioning at bedside and alert nurse with coughing up damaris blood -continue morphine for pain control -continue current care -yesterday spoke to Dr. Viveros, patient's oncologist, and he was unaware of lung mass and was okay full work-up (4) CAD (coronary artery disease) Code(s): I25.10 - ATHSCL HEART DISEASE OF [place] CORONARY ARTERY W/O ANG PCTRS Status: Chronic Plan: S/p stent -hold aspirin at this time due to bleed (5) HLD (hyperlipidemia) Code(s): E78.5 - HYPERLIPIDEMIA, UNSPECIFIED Status: Chronic Plan: continue home meds via PEG (6) HTN (hypertension) Code(s): I10 - ESSENTIAL (PRIMARY) HYPERTENSION Status: Chronic Plan: continue home meds via PEG, monitor vitas -BPs have been low, BP meds have been held 2/2 to low pressures -continue to monitor (7) Hypothyroidism Code(s): E03.9 - HYPOTHYROIDISM, UNSPECIFIED Status: Chronic Plan: Continue home meds via peg - Plan Plan: Pt to bronchoscopy this morning with Dr. Jaquez. Will follow ENT and Pulm recs. <Yo Timmons - Last Filed: 03/12/17 09:12> Attending Addendum - Attending Addendum I personally evaluated the patient and discussed the management with Dr. Timmons. I agree with the History, Examination, Assessment and Plan documented above with any addition or exceptions noted below. The patient is going for bronchoscopy. Further treatment and management after procedures. <Sammi Wesley - Last Filed: 03/12/17 13:11>
[2017-03-12] MEDS: Arformoterol 15 MCG/2 ML NEB NEB SCH ×2 (07:13→20:10)
[2017-03-12] MEDS ORDERED: Fentanyl 100 MCG/2 ML VIAL ONE (09:38)
[2017-03-12] MEDS ORDERED: Midazolam HCl 2 mg/2 ml Vial ONE (09:38)
[2017-03-12] MEDS ORDERED: Lidocaine 4% Topical Sol 50 ML BOT ONE (09:38)
[2017-03-12] MEDS ORDERED: Promethazine HCl 25 MG/ML VIAL SLOW IVP PRN (12:09)
[2017-03-12] MEDS ORDERED: Ondansetron HCl/PF 4 MG/2 ML Vial IVP PRN (12:09)
[2017-03-12] MEDS ORDERED: Promethazine HCl 25 MG/ML VIAL IM PRN (12:09)
[2017-03-12] MEDS: Cefepime 2 GM in Syringe 12.5 ML SLOW IVP SCH (12:43)
[2017-03-12] MEDS: Cyclobenzaprine 10 MG TAB PER TUBE SCH ×3 (12:43→21:40)
[2017-03-12] MEDS: Amlodipine 10 MG TAB PER TUBE SCH (12:45)
[2017-03-12] MEDS: Lisinopril 20 MG TAB PER TUBE SCH (12:47)
[2017-03-12] MEDS: predniSONE 20 MG TAB PO SCH (13:08)
[2017-03-12] MEDS ORDERED: Glycopyrrolate 0.2 MG/ML 5 ML SYRINGE ONE (13:30)
[2017-03-12] MEDS ORDERED: Propofol 200 MG/20 ML VIAL ONE (13:30)
[2017-03-12] MEDS ORDERED: PHENYLEPHRINE-NS 100 MCG/ML 10 ML SYRINGE ONE (13:30)
[2017-03-12] MEDS ORDERED: Succinylcholine Chloride 20 MG/ML 10 ml SYRINGE FS ONE (13:30)
[2017-03-12] MEDS ORDERED: Lidocaine 1% PF 5 ML VIAL ONE (13:30)
--- NOTE | 2017-03-12 14:13 | PRG ---
DATE OF SERVICE: 03/12/2017 SERVICE: Pulmonary Medicine INTERVAL HISTORY: The patient is doing okay from a respiratory standpoint. He is breathing comforta torin. He denies any current fevers, chills, nausea, vomiting or shortness of breath. He does not hav e any new issues and there was no respiratory events overnight. We are preparing for a bronchoscopy today. PHYSICAL EXAMINATION: VITAL SIGNS: Afebrile, pulse 74, blood pressure 103/70, respirations 14, saturation 96% on room air. GENERAL: The patient is awake, alert, no apparent distress. LUNGS: Decent air entry. There is a prolonged expiratory phase. Rhonchi are present, clear with co ugh. HEART: Normal rate, regular. ABDOMEN: Soft, nontender, nondistended. Bowel sounds are positive. MUSCULOSKELETAL: No cyanosis or clubbing. No pitting in the bilateral lower extremities. NEUROLOGIC: Grossly nonfocal. LABORATORY DATA: WBC 5.2, hemoglobin 8.3, platelets 369,000. Respiratory culture is negative to boone e. Influenza A and B are unremarkable. No organisms were actually seen. There were a few white blo od cells present. ASSESSMENT: 1. Pulmonary nodule. 2. Status post laryngectomy. 3. Squamous cell carcinoma of the head and neck. 4. Foreign body, unlikely. DISCUSSION AND PLAN: We will proceed with our bronchoscopy. It is clear to me now that one of the f oreign bodies that we identified was the device that the patient's daughter inserted into his speakin g valve location which extended down into the esophagus. This has subsequently been removed. He has a speaking valve in place now with a ring on it so it will not go down into his lung. We will look for foreign body in the lung. That being said, I do not see anything clearly identified as such on t he CT scan. The other possible foreign body may not be a foreign body at all. The patient has absol utely no manipulation in this region. There is an area that appears to be a foreign body that extend s from the esophagus to the carotid artery. My fear is that this could actually represent extravasat ion of blood from the carotid artery towards the direction of the esophagus. If this is the case, th ere is a possibility this thing could rupture and cause a catastrophic bleed. The patient is aware o f this fact. Dr. Whitaker appreciates this and is suggesting at this point, there is not much that can be done for this type of a lesion. If we were to repeat a CT scan of the neck without any contrast, and the second foreign body no longer lit up with the contrast, I think could be fairly convincing e vidence to suggest that this is a vascular malformation/fistulous tract. I am not convinced that the patient has any type of infectious profile. The Gram stain does not show any organisms or white blo od cells. As such, I think it would be reasonable to interrupted antibiotic therapy only to be resum ed if we actually culture something on the BAL.
--- NOTE | 2017-03-12 21:03 | OP ---
DATE OF SERVICE: 03/12/2017 SERVICE: Pulmonary Medicine. PROCEDURE: Fiberoptic bronchoscopy with: 1. Visual airway inspection. 2. Endobronchial brush from the right upper lobe, posterior segment. 3. Bronchioalveolar lavage from the right upper lobe, posterior segment. 4. Transbronchial biopsies from right upper lobe, posterior segment PREPROCEDURE DIAGNOSES: 1. Pulmonary nodule. 2. Possible foreign body. POSTPROCEDURE DIAGNOSES: 1. Pulmonary nodule. 2. Possible foreign body. PROCEDURE TURF MANAGER: Elver Jaquez M.D. MEDICATIONS USED: For list of medications, please refer to anesthesia documentation. PREANESTHESIA ASSESSMENT: H&P had been performed. The patient's medications and allergies were revi ewed. Informed consent was obtained after discussing risks, benefits, and rationale for performing t he procedure as well as alternative options. DESCRIPTION OF PROCEDURE: A timeout was performed, identifying the correct procedure and patient wit h name and date of . Anesthesia placed a tube in the tracheostomy through the laryngectomy site. A diagnostic fiberoptic bronchoscope was introduced through the tube. The fransisco was identified. A tracheobronchial tree inspection was carried out with clear identification of the right upper lobe, right middle lobe, right lower lobe, left upper lobe, lingula, and left lower lobe. Anatomy was nor mal to the subsegmental level. There were very thickened purulent secretions throughout. There was also dried scabs and other types of debris that was present throughout bilateral lung everett. This w as subjected to vigorous suctioning and removal of much of this burden. After this, there was no pus that was pouring out any of the segments. The mucosa was friable throughout, but I did not identify any discrete endobronchial disease. Bronchoalveolar lavage was obtained from the posterior segment of the right upper lobe. Endobronchial brushings and transbronchial biopsies were also obtained from this location under fluoroscopic guidance. Hemostasis was verified and the bronchoscope was subsequ ently removed from the patient. Post-procedure fluoroscopy did not demonstrate a pneumothorax. FINDINGS: 1. Thick purulent sputum throughout bilateral lung everett with no obvious area that was involved. 2. No discrete endobronchial disease was identified in the right upper lobe. SPECIMENS OBTAINED: 1. Microbiology on the BAL. 2. Pathology on the BAL, brushings, and transbronchial biopsies. COMPLICATIONS: None. ESTIMATED BLOOD LOSS: 1 mL. FLUOROSCOPY TIME: 72 seconds. DISPOSITION: The patient will be transitioned back to his medical unit after he recovers from anesth esia.
[2017-03-12] MEDS: Atorvastatin Calcium 40 MG TAB PER TUBE SCH (21:40)
[2017-03-12] MEDS: Amitriptyline HCl 25 MG TAB PER TUBE SCH (21:40)
[2017-03-12] MEDS: Famotidine 20 MG TAB PER TUBE SCH (21:41)
[2017-03-12 23:42] LABS: Vancomycin, Trough 11.1 ug/mL
[2017-03-13] MEDS: Levothyroxine 150 MCG TAB PER TUBE SCH (05:13)
--- NOTE | 2017-03-13 06:46 | PDOC.FM ---
- Subjective Subjective: Mr. Moss is doing well this morning, He had no acute events overnight. He tolerated his bronchoscopy well yesterday. He denies any dyspnea, chest pain, fever, n/v/d, coughing up blood. - Objective MAR Reviewed: Yes Vital Signs & Weight: Vital Signs (12 hours) Temp Pulse Resp BP Pulse Ox 03/13/17 04:00 97.9 F 75 20 90/60 99 03/13/17 00:28 98.3 F 79 20 97/65 94 L 03/12/17 20:10 85 16 91 L 03/12/17 20:00 98.3 F 85 16 93 L Weight Admit Weight 79.56 kg Weight 79.56 kg I&O: 03/11/17 03/12/17 03/13/17 06:59 06:59 06:59 Intake Total 489 1026 Balance 489 1026 Result Diagrams: 03/12/17 05:24 03/10/17 14:20 <Yo Timmons - Last Filed: 03/13/17 13:02> - Objective Vital Signs & Weight: Vital Signs (12 hours) Temp Pulse Resp BP BP Pulse Ox 03/13/17 13:17 98.4 F 93 20 93/69 96 03/13/17 08:23 98.2 F 91 20 120/70 94 L 03/13/17 08:00 98.2 F 91 20 Weight Admit Weight 79.56 kg Weight 79.56 kg I&O: 03/12/17 03/13/17 03/14/17 06:59 06:59 06:59 Intake Total 489 1026 Balance 489 1026 Result Diagrams: 03/12/17 05:24 03/10/17 14:20 <Sammi Wesley - Last Filed: 03/13/17 19:46> Phys Exam - Physical Examination Constitutional: NAD HEENT: moist MMs, sclera anicteric Neck: no JVD, supple, full ROM Respiratory: no wheezing, no rales, no rhonchi, clear to auscultation bilateral Cardiovascular: RRR, no significant murmur, no rub Gastrointestinal: soft, non-tender, no distention Musculoskeletal: no edema, pulses present Neurological: non-focal, normal sensation, moves all 4 limbs Psychiatric: normal affect, A&O x 3 <Yo Timmons Filed: 03/13/17 13:02> Dx/Plan (1) Foreign body Code(s): [id number] - Status: Acute Plan: Dr. Jaquez (Pulm) and Dr. Whitaker (ENT surg) on the case, pt is s/p bronchoscopy Determined that there was no FB in airway Dr. Jaquez recommended discontinuing Abx, as clinically pt does not appear to have pneumonia and bronchoscopy findings were not characteristic of PNA After speaking with Dr. Jaquez, density on CT between esophagus and carotid artery could poss be vascular tract vs FB Will contact pts ENT surgeon, Dr. Monsalve today. (2) Right upper lobe pneumonia Code(s): J18.1 - LOBAR PNEUMONIA, UNSPECIFIED ORGANISM Status: Acute Plan: Recent hospitalization within the last 10 days -discontinued broad spectrum abx-vancomycin, cefepime, and levofloxacin -continue duonebs and home inhalers -blood cx pending, bronchoscopy [place] cx pending -Dr. Jaquez recommended d/c abx, as findings were not consistent with pna (3) Esophageal cancer Status: Acute Plan: Pt reports he is on chemo, but tumor burden is worsening -has been coughing up blood clots lately -will be starting immunotherapy soon -suctioning at bedside and alert nurse with coughing up damaris blood -continue morphine for pain control -continue current care -yesterday spoke to Dr. Viveros, patient's oncologist, and he was unaware of lung mass and was okay full work-up -no changes in care at this time -palliative care team on the case (4) CAD (coronary artery disease) Code(s): I25.10 - ATHSCL HEART DISEASE OF [place] CORONARY ARTERY W/O ANG PCTRS Status: Chronic Plan: S/p stent -hold aspirin at this time due to bleed (5) HLD (hyperlipidemia) Code(s): E78.5 - HYPERLIPIDEMIA, UNSPECIFIED Status: Chronic Plan: continue home meds via PEG (6) HTN (hypertension) Code(s): I10 - ESSENTIAL (PRIMARY) HYPERTENSION Status: Chronic Plan: continue home meds via PEG, monitor vitas -BPs have been low, BP meds have been held 2/2 to low pressures -continue to monitor (7) Hypothyroidism Code(s): E03.9 - HYPOTHYROIDISM, UNSPECIFIED Status: Chronic Plan: Continue home meds via peg <Yo Timmons - Last Filed: 03/13/17 13:02> Attending Addendum - Attending Addendum I personally evaluated the patient and discussed the management with Dr. Timmons. I agree with the History, Examination, Assessment and Plan documented above with any addition or exceptions noted below. Patient has been cleared for discharge. The test results have been discussed with his specialists at [facility] who will work him in on Thursday of next week. Patient is also considering changing code status to DNR and will discuss with family further after discharge. <Sammi Wesley - Last Filed: 03/13/17 19:46>
[2017-03-13] MEDS: Arformoterol 15 MCG/2 ML NEB NEB SCH (07:14)
[2017-03-13] MEDS: Amlodipine 10 MG TAB PER TUBE SCH (08:21)
[2017-03-13] MEDS: Lisinopril 20 MG TAB PER TUBE SCH (08:21)
[2017-03-13] MEDS: Metoprolol Tartrate 25 MG TAB PER TUBE SCH (08:21)
[2017-03-13] MEDS: Cyclobenzaprine 10 MG TAB PER TUBE SCH (08:26)
[2017-03-13] MEDS: predniSONE 20 MG TAB PO SCH (08:26)
[2017-03-13] MEDS: Sodium Chloride 0.9% 1,000 ML IV SCH (08:29)
[2017-03-13 13:18] VITALS: BP 93/69; TEMP 98.4
--- NOTE | 2017-03-13 13:33 | CT ---
CT THORAX NONCONTRAST: DATE: 03/13/2017 HISTORY: Follow-up abnormality (possible foreign body) in the upper mediastinum. COMPARISON: Contrast-enhanced CT pulmonary angiogram from 03/10/2017. FINDINGS: On the previous CT, there was the appearance of a short, extraluminal catheter fragment in the left u pper mediastinum, near the thoracic inlet, at the left posterolateral relative to the trachea in the upper the mediastinum,. That appearance is no longer visualized. Unless the patient has had a forei gn body retrieval procedure, that probably represented streak artifact eminating from the dense contr ast material within the adjacent left subclavian/brachiocephalic vein junction. Again noted is the tracheostomy soft tissue defect. Again noted is the short valve between the poste rior aspect of the upper trachea and the upper aspect of the esophagus. New, tiny particles are visu alized at the dependent aspect of the lumen of the trachea and bilateral mainstem bronchi, not visual ized on the previous CT. These are nonspecific. There is no longer a catheter within the esophageal lumen. There was an irregularity-shaped, mass-like opacity at the posterior segment of the right upper lobe, surrounded by somewhat severe ground glass opacities. The posterior aspect of that solid-appearing, mass-like opacity has become slightly smaller during the interval, indicating that at least part of this, and probably all of it, represents pneumonia. However, continued serial follow-up chest CTs ar e recommended until complete resolution. The surrounding severe ground glass infiltrate remains. IMPRESSION: 1. The previous appearance of an extraluminal catheter fragment in the left upper mediastinum is no longer visualized. Therefore, it is concluded that that was streak/ spray artifact arising from stacie cent dense contrast material within the left adjacent subclavian/brachiocephalic vein junction (unles s there has been a foreign body removal procedure). 2. A new finding of multiple tiny fragments of material in the lumen of the trachea and the bilatera l mainstem bronchi, left greater than right. 3. Interval improvement in the focal mass-like opacity in the posterior segment of the right upper l obe (surrounded by infiltrate). This indicates that this is probably a pneumonia. However, continue d followup is recommended. 4. Interval removal of the catheter in the esophagus. 5. The valve between the trachea and the upper esophagus remains. NEHAL R POS: RENA
--- NOTE | 2017-03-13 19:57 | DIS-2 ---
DATE OF ADMISSION: 03/10/2017 DATE OF DISCHARGE: 03/13/2017 RESIDENT: Yo Timmons MD ADMITTING ATTENDING: Gm Garcia M.D. DISCHARGE ATTENDING: Sammi Wesley M.D. CONSULTATIONS: 1. Palliative care on 03/10/2017. 2. Pulmonology on 03/11/2017, Dr. Elver Jaquez. 3. ENT on 03/10/2017, Dr. Whitaker. PROCEDURES: 1. Chest x-ray PA and lateral, impression: Early right upper lobe infiltrate. 2. X-ray of the neck soft tissue, impression: Abnormal soft tissue opacification of the aerodigesti ve tract from the region of the oropharynx to the subglottic tracheal air column. This may relate to inflammation and/or malignancy. There are numerous metallic coils overlying the submental region bi laterally. 3. CT angio of the chest with and without contrast, impression: Intraluminal esophageal thin cathet er entering through the tracheostomy defect with the distal tip in the mid thoracic esophagus. Anoth er new short catheter-like density in the left upper mediastinum between the trachea and the esophagu s as mentioned above very close to the cervicothoracic junction. The exact etiology of this apparent foreign body is uncertain, perhaps a dislodged catheter fragment. New infiltrate in the posterior s egment of the right upper lobe surrounding a focal mass-like opacity. This mass could be primary kvng g cancer or pneumonia. 4. Status post total laryngectomy. 5. On 03/12/2017, fiberoptic bronchoscopy with visual airway inspection, endobronchial brush from th e right upper lobe, posterior segment bronchioalveolar lavage from the right upper lobe posterior seg ment, bronchial biopsies from the right upper lobe posterior segment. Findings: Thick purulent sput um throughout bilateral lung everett with no obvious area that was involved. No discrete endobronchia l disease was identified in the right upper lobe. Specimens obtained: Microbiology on the bronchioa lveolar lavage and pathology on the bronchoalveolar lavage, brushings, and transbronchial biopsies. No complications. PRIMARY DIAGNOSIS: Right upper lobe pneumonia. SECONDARY DIAGNOSES: 1. Possible foreign body in the mediastinum. 2. Esophageal cancer. 3. Hypertension. 4. Hyperlipidemia. 5. Hypothyroidism. 6. Coronary artery disease status post stent. 7. Microcytic anemia. DISCHARGE MEDICATIONS: Resume all home medications includin. Pantoprazole sodium 40 mg p.o. b.i.d. 2. Aspirin 81 mg p.o. daily. 3. Atorvastatin calcium 40 mg p.o. at bedtime. 4. Lisinopril 20 mg p.o. daily. 5. Gabapentin 600 mg p.o. t.i.d. 6. Diazepam 10 mg p.o. at bedtime p.r.n. 7. Mucinex 1200 mg p.o. b.i.d. p.r.n. 8. Nystatin oral suspension 10 mL SSW b.i.d. 9. Tessalon 200 mg p.o. t.i.d. p.r.n. 10. Promethazine DM syrup 5 mL p.o. q.8 hours p.r.n. 11. Nitroglycerin 0.4 mg SL p.r.n. 12. Morphine sulfate ER 30 mg p.o. q.12 hours p.r.n. 13. Diclofenac sodium 50 mg p.o. daily. 14. Cyclobenzaprine 10 mg p.o. t.i.d. 15. Arformoterol 15 mcg neb b.i.d. 16. Amlodipine besylate 10 mg p.o. daily. 17. Amitriptyline HCL 25 mg p.o. at bedtime. 18. Hydrocodone/acetaminophen 15 mL p.o. q.4 hours p.r.n. 19. Metoprolol tartrate 12.5 mg p.o. b.i.d. 20. Ranitidine 300 mg p.o. at bedtime. 21. Synthroid 150 mcg p.o. daily. 22. Ranexa 500 mg p.o. b.i.d. 23. Aminocaproic acid 10 mL p.o. q.2 hours p.r.n. 24. Oxymetazoline HCL 1 spray each naris b.i.d. p.r.n. 25. Isosorbide mononitrate 60 mg p.o. daily. DISCONTINUED MEDICATIONS: Prednisone 40 mg p.o. q.a.m. with meals. HISTORY OF PRESENT ILLNESS AND HOSPITAL COURSE: Bobby Moss is an unfortunate 57-year-old male with past medical history of laryngeal and esophageal cancer status post radiation and chemotherapy with tracheostomy in place. The patient's reports that he was brought to the ED because he woke up i n the morning presenting to the ED without his speaking valve at a stoma site. Yesterday night he wa s readjusting it and this morning he realized it was gone. He came to the ED and based on imaging, i t was found to possibly have the prosthesis lodged in his esophagus. Incidentally, he was found also to have a right upper lobe infiltrate on CT and chest x-ray. The patient denied any fevers or diffi culty breathing or swallowing. He was recently seen and admitted for laryngeal bleed from his cancer . He was actually discharged from the hospital a few days prior to this admission. In the ER, he wa s given Levaquin and cefepime. On admission, his blood pressure is 91/62, pulse of 84, respiratory r ate 24, temperature of 98.0, pulse ox of 83% on room air. When the patient was seen by us, he had re ceived a DuoNeb and coughed up some mucus/blood and his sats have improved to about 94-96%. White bl ood cell count on admission was 7.0, hemoglobin 8.5, hematocrit 29.7, platelets 249. Labs on admissi on were as stated above. The patient was admitted and initially treated for HCAP with cefepime, Leva atul, and vancomycin. He was also given DuoNeb and home inhalers. Blood cultures were taken in the ED. ENT was consulted as well as Pulmonology. Discussion between the two of them led to the decisio n to proceed with bronchoscopy as there was a possible new mass in the lung. Bronchoalveolar lavage was performed and cultures were taken from wash as well as biopsies done. Per Dr. Jaquez with Pulmo nology, he did not believe the patient had findings suggestive of pneumonia. He recommended disconti nuing antibiotics and he also was able to figure out that one of the foreign bodies that was identifi ed from the CT was the device that the patient's daughter inserted into a speaking valve location whi ch extended down the esophagus. This has been removed by Dr. Jaquez. A speaking valve is now in pl liz with a ring on it, so will not go down into his lung. There was no foreign body in his lung. CT without contrast was performed on the day of discharge for comparison purposes and radiologist state s that the foreign body was no longer obvious and he has a low suspicion for a vascular tract that ex tends from the esophagus to the carotid artery. This was initially a concern of Dr. Jaquez with Pul monology as it would be consistent with the patient's history of coughing up blood and could represen t extravasation of the blood from the carotid artery towards the direction of the esophagus. Dr. Piyush trujillo, ENT surgery, stated that there is not much that could be done for this type of lesion at this po int. I spoke to Dr. Marie, ENT surgeon of the patient who is in [place] and she was in agreemen t that we should proceed with a CT noncontrast imaging on the day of discharge. She also was in agre ement with the plan to see the patient on 03/17/2017 following the patient being discharged. She requested that images be given to the patient so that she is able to view them when he sees her in the outpatient setting. The patient was stable for discharge on 03/13/2017. Antibiotics were di scontinued and we will continue to await the results of culture from BAL and if bacteria grow, then w e can restart patient on antibiotics. The patient was in agreement with this plan and stated he will see Dr. Marie on Thursday following discharge. DISPOSITION: Guarded. The patient is going to need close followup with Dr. Marie, ENT surgery. I spoke to Dr. Marie and she said that she would make room for him and schedule on Thursday. The p atient and family were in agreement with this plan. DISCHARGE INSTRUCTIONS: 1. Location: Home. 2. Diet: Heart healthy. 3. Activity: As tolerated. 4. Follow up with Dr. Marie, ENT on Thursday following discharge and with primary care provider, Anne Soler at [facility] within the next week.
[2017-03-16 10:12] LABS: Fungus Stain Final report (.)
--- NOTE | 2017-03-27 09:21 | PQF ---
SYMONE BRYANT KATHERINE MD *r [id number] CLINICAL DOCUMENTATION CLARIFICATION FORM: POST DISCHARGE Addendum to original discharge summary date: ____ Late entry note date: __ DATE: 03/27/17 ATTN: Dr Wesley Please exercise your independent, professional judgment in responding to the clarification form. Clinical indicators are provided on the bottom of this form for your review Please check appropriate box(s): [ ] Acute Respiratory Failure: [ ] with Hypoxia [ ] with Hypercapnia [ ] Acute On Chronic Respiratory Failure: [ ] with Hypoxia [ ] with Hypercapnia [ ] Acute Respiratory Failure due to: (etiology) [ ] Acute Respiratory Insufficiency following (if applicable): [ ] trauma [ ] surgery [ ] Chronic Respiratory Failure only [ ] with Hypoxia [ ] with Hypercapnia [ ] Hypoxia [ ] Other diagnosis [ ] Unable to determine In addition, please specify: Present on Admission (POA): [ ] Yes [ ] No [ ] Unable to determine For continuity of documentation, please document condition throughout progress notes and discharge summary. Thank You. CLINICAL INDICATORS - SIGNS / SYMPTOMS / LABS Decreased oxygen saturation (<90% room air or < 95% on oxygen). Cyanosis/Hypoxia -- 83% on room air RISK FACTORS tracheostomy Tobacco abuse / exposure Pneumonia TREATMENTS: Oxygen Monitoring of oxygenation status Respiratory treatments Serial CXR Antibiotics IV SAP Mortar Mixer Crystal Reports Winform ViewerBronchodilators Pulmonary Consult Bronchoscopy (This form is maintained as a part of the permanent medical record) 2014 [employer]. All Rights Reserved [email or web address] [phone] [email or web address]
== END 2017-03-13 13:46 | disposition home or self-care (01) | DRG 167 ==
LOC: SCSER 12:41 → T4-B 16:30
PROVIDERS: ADMIT Family Medicine; ATTEND Family Medicine
PROC: 0BB48ZX Excision of Right Upper Lobe Bronchus, Via Natural or Artificial Opening Endoscopic, Diagnostic (ICD-10-PCS; principal; 2017-03-12)
PROC: 0BBC8ZX Excision of Right Upper Lung Lobe, Via Natural or Artificial Opening Endoscopic, Diagnostic (ICD-10-PCS; 2017-03-12)
PROC: 0B9C8ZX Drainage of Right Upper Lung Lobe, Via Natural or Artificial Opening Endoscopic, Diagnostic (ICD-10-PCS; 2017-03-12)
DX: J18.9 Pneumonia, unspecified organism (principal); C15.9 Malignant neoplasm of esophagus, unspecified; T18.108A Unspecified foreign body in esophagus causing other injury, initial encounter; D50.9 Iron deficiency anemia, unspecified; E03.9 Hypothyroidism, unspecified; E78.5 Hyperlipidemia, unspecified; J44.9 Chronic obstructive pulmonary disease, unspecified; Z51.5 Encounter for palliative care; F32.9 Major depressive disorder, single episode, unspecified; I10 Essential (primary) hypertension; Z85.21 Personal history of malignant neoplasm of larynx; Z92.3 Personal history of irradiation; I25.10 Atherosclerotic heart disease of native coronary artery without angina pectoris; Z95.5 Presence of coronary angioplasty implant and graft; Z88.8 Allergy status to other drugs, medicaments and biological substances; Z79.01 Long term (current) use of anticoagulants; Z79.82 Long term (current) use of aspirin; Z79.891 Long term (current) use of opiate analgesic; Z87.891 Personal history of nicotine dependence
CPT/HCPCS: 36415; 70360; 71046; 71250; 71275; 76000; 80053; 80202; 85025; 86850; 86900; 86901; 87070; 87102; 87116; 87205; 87206; 88112; 88305; 88312; 94640; 96365; 96367; A4216; J0692; J1956; J2001; J2250; J2270; J2704; J3010; J3370; J7050; J7506; S0017

== ENCOUNTER 2017-04-01 09:15 | Outpatient (CLI) | payer MEDICARE ==
--- NOTE | 2017-04-01 09:36 | RAD ---
CHEST TWO VIEWS: History: Dyspnea. FINDINGS: Cardiac silhouette and pulmonary vasculature are unremarkable. Mediastinum is midline. Calcified gran ulomata are consistent with healed granulomatous disease. There is no confluent airspace consolidatio n, pneumothorax, or pleural fluid evident. Radiopaque tubing in the left upper quadrant has the appea som of a feeding catheter. IMPRESSION: No active cardiopulmonary abnormalities are demonstrated. POS: [facility]
== END 2017-04-01 09:16 | disposition home or self-care (01) ==
LOC: RAD 09:15
PROVIDERS: ATTEND Internal Medicine
DX: R06.00 Dyspnea, unspecified (principal)
CPT/HCPCS: 71046

== ENCOUNTER 2017-04-14 14:09 | Inpatient (IN) | payer MEDICARE ==
[2017-04-14] MEDS ORDERED: ISOVUE-370 76%-LOCM 1 ML ONE (14:34)
[2017-04-14 14:50] LABS: #Eosinphils 0.2 thou/uL (0.0-0.7); #Lymphocytes 1.1 thou/uL (1.20-3.40); #Monocytes 0.5 thou/uL (0.11-0.59); #Neutrophils 6.5 thou/uL (1.40-6.50); %Basophils 0.4 % (0.0-1.0); %Eosinophils 2.3 % (0.0-10.0); %Lymphocytes 13.1 % (21.0-51.0); %Monocytes 6.2 % (0.0-10.0); Hemoglobin 8.2 g/dL (14.0-18.0); Mean Corpuscular HGB CONC 32.9 g/dL (32.0-36.0); Mean Corpuscular Hemoglobin 27.3 pg (27.0-31.0); Mean Corpuscular Volume 83.1 fl (80.0-94.0); Platelet Count 330 thou/uL (130-400); Red Blood Cell (RBC) Count 2.99 mill/uL (4.70-6.10); White Blood Cell (WBC) Count 8.3 thou/uL (4.8-10.8)
[2017-04-14 14:57] LABS: INR-International Normal Ratio 1.2; PTT 28.9 SEC (22.9-36.1); Prothrombin Time 14.9 SEC (12.0-14.7)
[2017-04-14 15:08] LABS: ALT (SGPT) 7 U/L (8-55); AST (SGOT) 11 U/L (5-34); Albumin 2.9 g/dL (3.5-5.0); Alkaline Phosphatase 94 U/L (40-150); Anion Gap 12 mmol/L (10-20); BUN (Urea Nitrogen) 7 mg/dL (8.4-25.7); Bilirubin, Total 0.4 mg/dL (0.2-1.2); Calc. Creatinine Clearance 0 mL/min (70-130); Calcium 8.7 mg/dL (7.8-10.44); Carbon Dioxide 23 mmol/L (22-29); Chloride 105 mmol/L (98-107); Estimated GFR-MDRD Greater than 90; Globulin 3.2 g/dL (2.4-3.5); Glucose 134 mg/dL (70-105); Lipase Less than 4 U/L (8-78); Potassium 3.3 mmol/L (3.5-5.1); Protein, Total 6.1 g/dL (6.0-8.3); Sodium 137 mmol/L (136-145)
--- NOTE | 2017-04-14 15:10 | RAD ---
UPRIGHT PORTABLE CHEST ONE VIEW: History: 57-year-old male for follow up dyspnea. FINDINGS: Percutaneous gastrostomy tube overlies the left upper abdomen and lower chest. No confluent pneumonia , overt edema, or pleural effusion. No evidence for other significant acute process. IMPRESSION: No acute intrathoracic disease. Percutaneous gastrostomy catheter overlies the left upper quadrant an d left lower chest. No evidence of pneumonia or other acute process. POS: [facility]
[2017-04-14 15:12] LABS: CKMB 0.8 ng/mL (0-6.6); Troponin I Less than 0.010 ng/mL (< 0.028)
[2017-04-14] MEDS ORDERED: Piperacillin/Tazobactam 4.5 GM in Sodium Chloride 0.9% 100 ML IVPB ONE (16:00)
[2017-04-14] MEDS ORDERED: Ondansetron HCl/PF 4 MG/2 ML Vial IVP PRN ×2 (16:33→20:24)
[2017-04-14] MEDS ORDERED: Sodium Chloride 0.9% 1,000 ML IV SCH (16:45)
[2017-04-14] MEDS ORDERED: Enoxaparin Sodium 30 MG/0.3 ML SYRINGE SC SCH (17:00)
--- NOTE | 2017-04-14 17:07 | PDOC.EVN ---
Event Note - Event Note Event Note: 57 yo male with esophageal cancer s/p XRT and chemotherapy with multiple recurrences. 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 Patient was considered for Keytruda chemotherapy. Patient with noted fever to 102 and spouse with recent influenzae . Chemotherapy placed on hold and per family fever was felt secondary to possible tumor burden or flu. Today patient with generalized malaise seen in Er with c/o dyspnea noted hypotension 73/42, relatively new normocytic anemia and sepsis w/u initiated good response to IV fluid bolus will admit to telemetry. Exam chronically ill appearance mass noted 2.5 cm above tracheostomy site, barrel chest with distant BS. Abdomen protuberant no mass BS positive. lab WBC 8,000 Hgb 8.2 HCT 24.8 DX SIRS r/o influenza related sepsis, consider PE, Empirical Antibiotic coverage,notify Pulmonology Dr Jaquez. [facility] prognosis is guarded, candid discussion with patient and . Patient desires DNR status.
[2017-04-14 19:27] LABS: D-Dimer Test 1.04 *mcg/mL (0.27-0.43)
[2017-04-14 19:36] LABS: Lactic Acid 1.8 mmol/L (0.5-2.2)
[2017-04-14] MEDS: Oseltamivir 6 MG/ML ORAL SUSP PO SCH (21:45)
[2017-04-14] MEDS: Hydrocodone-Acetamin 15 ML UDCUP PO PRN (22:19)
[2017-04-14] MEDS ORDERED: Potassium Chloride 20 MEQ TAB PO SCH (23:00)
--- NOTE | 2017-04-14 23:02 | CT ---
CT PULMONARY ANGIO OF CHEST WITH IV ENHANCEMENT: 04/14/17 Multiple axial tomograms obtained through the chest following pulmonary angio protocol withy multipla alexandr reconstructions and 3D postprocessing. HISTORY: Shortness of breath. Chest pain. History of lung cancer. FINDINGS: Pulmonary arteries show adequate opacification. There is no evidence of pulmonary embolus. The lung everett are clear of infiltrate. There is no evidence of effusion. Mediastinum is unremarkable. Thorac ic aorta is unremarkable. The esophagus shows mild dilatation and is mildly distended and fluid fille d. PEG tube is in adequate position. IMPRESSION: 1. No evidence of pulmonary embolus. 2. No acute lung process. POS: [facility]
[2017-04-14] MEDS: Piperacillin/Tazobactam 4.5 GM in Sodium Chloride 0.9% 100 ML IVPB SCH (23:09)
[2017-04-14] MEDS: Sodium Chloride 0.9% 1,000 ML IV SCH (23:10)
--- NOTE | 2017-04-15 01:48 | HP-2 ---
CODE STATUS: DNR. PRIMARY CARE PHYSICIAN: [facility] ATTENDING: Dr. Chung. RESIDENT: Dr. Denisha Graf. SPECIALIST: Dr. Jaquez, Pulmonology; Dr. Viveros, Oncology; Dr. Marie, ENT. CHIEF COMPLAINT: Shortness of breath. HISTORY OF PRESENT ILLNESS: This is a 56-year-old male with past medical history of squamous cell carcinoma of the larynx that presents with dyspnea and generalized weakness for the past 2 days. He states anytime he has to exert himself, he becomes short of breath and feels as though he has to gasp for air. The patient did see his oncologist yesterday and was going to start Keytruda as form of chemotherapy; however, he had a fever to 102 degrees Fahrenheit at that time. Thus chemotherapy medications were held for the time being. Oncologist was concerned for flu as patient's recently had influenza A and influenza B within the past 2 weeks. He has been on prophylactic Tamiflu and no swab was done at that time for concerns of false negative results. Patient was hypotensive on arrival with blood pressure 73/ 42. However, he responded well to IV fluids and blood pressure systolic was in the 100s on examination. Patient denies any chest pain, orthopnea, syncopal episodes or trouble urinating. He has had a mild cough which is pretty persistent with a history of COPD and a laryngectomy. Patient was given initial 500 mL bolus in the ED, but was bumped up to 2 liter total bolus of fluids which is when his blood pressure responded. The patient was also started on vancomycin and Zosyn in the emergency department for presumed hospital-acquired pneumonia. PAST MEDICAL HISTORY: 1. History of esophageal cancer. 2. Squamous cell carcinoma of the larynx. 3. Normocytic anemia. 4. Chronic obstructive pulmonary disease. 5. Hypertension. 6. Coronary artery disease. 7. Depression. 8. Hyperlipidemia. 9. Hypothyroidism. PAST SURGICAL HISTORY: 1. Laryngectomy. 2. Heart catheterization, status post right coronary stent. 3. Back surgery. 4. Elbow surgery x2. 5. Right groin hernia repair. 6. Fistula with recent bronchoscopy yesterday. ALLERGIES: 1. HYDROCHLOROTHIAZIDE. 2. TRAMADOL. MEDICATIONS: Last discharge summary lists the following medications, 1. Pantoprazole sodium 40 mg p.o. b.i.d. 2. Aspirin 81 mg p.o. daily. 3. Atorvastatin calcium 40 mg p.o. at bedtime. 4. Lisinopril 20 mg p.o. daily. 5. Gabapentin 600 mg p.o. t.i.d. 6. Diazepam 10 mg p.o. at bedtime p.r.n. 7. Mucinex 1200 mg p.o. b.i.d. p.r.n. 8. Nystatin oral suspension 10 mL b.i.d. 9. Tessalon 200 mg p.o. t.i.d. p.r.n. 10. Promethazine DM syrup 5 mL p.o. q.8 hours p.r.n. 11. Nitroglycerin 0.4 mg sublingual p.r.n. 12. Morphine sulfate extended release 30 mg p.o. q.12 hours p.r.n. 13. Diclofenac sodium 50 mg p.o. daily. 14. Cyclobenzaprine 10 mg p.o. t.i.d. 15. Formoterol 15 mcg nebulizer b.i.d. 16. Amlodipine besylate 5 mg p.o. daily. 17. Amitriptyline hydrochloride 25 mg p.o. at bedtime. 18. Hydrocodone/acetaminophen 50 mL p.o. q.4 hours p.r.n. 19. Metoprolol tartrate 12.5 mg p.o. b.i.d. 20. Ranitidine 300 mg p.o. at bedtime. 21. Synthroid 150 mcg p.o. daily. 22. Ranexa 500 mg p.o. b.i.d. 23. Aminocaproic acid 10 mL p.o. q.2 hours p.r.n. 24. Oxymetazoline 1 spray each naris b.i.d. p.r.n. 25. Isosorbide mononitrate 60 mg p.o. daily. FAMILY HISTORY: Mother with coronary artery disease and father with brain cancer. SOCIAL HISTORY: Patient quit smoking 5 years ago. He states that he drinks seldom and denies any drug use. The patient is and lives at home with his . His has been sick with influenza A and B recently. 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 REVIEW OF SYSTEMS: A 12-point review of systems was performed, all were negative except as listed in the HPI as indicated below, the patient does endorse some mild abdominal pain and some diffuse musculoskeletal pain that started today. This is also associated with weakness which is exacerbated by attempting to ambulate. PHYSICAL EXAMINATION: VITAL SIGNS: Blood pressure 73/42, pulse 93, respiratory rate 17, T-max 99.2, pulse oximetry 99% on room air. Current weight 78.93 kilograms. GENERAL: Patient is alert and oriented x3, no acute distress. Well-developed, well-nourished, appropriately interactive. EYES: Pupils are equal, round, reactive to light and accommodation. Extraocular muscles intact. Conjunctivae within normal limits. ENT: Oropharynx difficult to assess as this patient has difficulty opening his mouth secondary to laryngeal tumor. NECK: There is mass protruding from the left side of the neck secondary to the cancer. CARDIOVASCULAR: Regular rate and rhythm. No murmurs. RESPIRATORY: Normal effort, no retractions. Clear to auscultation bilaterally. SKIN: Warm and dry. There is some mild cyanosis of the lower extremities bilaterally. There are no lesions. ABDOMEN: Soft, mildly tender to palpation on the right quadrant. Bowel sounds are positive. There are no masses or distention. EXTREMITIES: No clubbing. There is some cyanosis of the lower extremities bilaterally. No edema. MUSCULOSKELETAL: Structure within normal limits. NEUROLOGIC: No focal deficits. GCS 15. PSYCHIATRIC: Appropriate. LABORATORY DATA: 1. CBC reveals white blood cell count 8.3, hemoglobin 8.2, hematocrit 24.8, platelets 330. 2. CMP reveals sodium 137, potassium 3.3, chloride 105, bicarbonate 23, BUN 7, creatinine 0.83, glucose 134, calcium 8.7, total protein 6.1, albumin 2.9, total bilirubin 0.4, alkaline phosphatase 94, AST 11, ALT 7. 3. PT 14.9, PTT 28.9, INR 1.2. 4. Lactic acid 2.4. 5. CK-MB 0.8, troponin less than 0.010. 6. Chest x-ray shows no acute disease. There is a percutaneous gastrostomy catheter overlying his left upper quadrant and left lower chest. ASSESSMENT AND PLAN: This is a 57-year-old male with past medical history of squamous cell carcinoma of the larynx that presents with dyspnea. 1. Sepsis, likely secondary to influenza. The patient was then admitted to telemetry as an inpatient. Chest x-ray did not show any acute disease and lungs are clear to auscultation bilaterally. Blood culture and urine cultures are pending at this time. Lactic acid was 2.4. Repeat lactic acid pending. The patient is status post 2 liters of normal saline. He will be placed on maintenance fluids at this time. Blood pressure was initially 73/42 and has responded to fluid bolus and is now systolic blood pressures in the 100s. D- dimer is pending to rule out PE as cause of dyspnea. If D-dimer is positive, CTA of the chest will be performed. Viral panel is pending at this time to confirm influenza. We will consult Dr. Jaquez in the a.m. to let him to know that his patient is here in to gather recommendations for further treatment. A BNP was ordered to assess for possible heart failure; however, it was 40 and there were no signs of overload, clinically. Patient was started on vancomycin and Zosyn. This will likely be continued until culture results. We will also continue the patient on Tamiflu. 2. Normocytic anemia. The patient's hemoglobin and hematocrit did drop from two admissions ago to the last admission; however, it is stable from the last admission. It went from 12 two admissions ago to 8.2 last admission. We will continue to trend his hemoglobin and hematocrit. FOBT is pending at this time to evaluate causes of anemia. Additionally, iron studies are pending at this time. 3. Laryngeal squamous cell carcinoma, status post laryngectomy. Patient is just speaking now. We will continue G-tube feedings. 4. Hyperlipidemia. Continue home medications. 5. Hypothyroidism. Continue home medications. 6. Depression. Continue home medications. 7. Coronary artery disease status post stent. Continue aspirin. Troponins are negative at this time. 8. Gastrointestinal prophylaxis, Protonix. 9. Deep venous thrombosis prophylaxis. Lovenox. DISPOSITION AND LENGTH OF HOSPITAL STAY: Three days. Symptomatic medication will be provided. History and physical exam as well as management discussed with Dr. Chung. MARIANNE
[2017-04-15] MEDS: Sodium Chloride 0.9% 1,000 ML IV SCH ×3 (03:33→18:15)
[2017-04-15] MEDS: Piperacillin/Tazobactam 4.5 GM in Sodium Chloride 0.9% 100 ML IVPB SCH ×4 (03:46→21:05)
[2017-04-15] MEDS: Vancomycin HCl 1 GM in Premix Bag 1 BAG IVPB SCH ×2 (05:31→18:14)
[2017-04-15 05:39] LABS: #Eosinphils 0.4 thou/uL (0.0-0.7); #Lymphocytes 1.4 thou/uL (1.20-3.40); #Monocytes 0.7 thou/uL (0.11-0.59); #Neutrophils 4.7 thou/uL (1.40-6.50); %Basophils 0.5 % (0.0-1.0); %Eosinophils 4.9 % (0.0-10.0); %Lymphocytes 19.3 % (21.0-51.0); %Monocytes 10.1 % (0.0-10.0); %Neutrophils 65.2 % (42.0-75.0); Hemoglobin 7.8 g/dL (14.0-18.0); Mean Corpuscular HGB CONC 31.7 g/dL (32.0-36.0); Mean Corpuscular Hemoglobin 26.8 pg (27.0-31.0); Mean Corpuscular Volume 84.5 fl (80.0-94.0); Mean Platelet Volume 6.7 fL (7.4-10.4); Platelet Count 297 thou/uL (130-400); RBC Distribution Width 14.2 % (11.5-14.5); Red Blood Cell (RBC) Count 2.91 mill/uL (4.70-6.10); White Blood Cell (WBC) Count 7.2 thou/uL (4.8-10.8)
[2017-04-15 05:58] LABS: Anion Gap 10 mmol/L (10-20); BUN (Urea Nitrogen) 4 mg/dL (8.4-25.7); Calc. Creatinine Clearance 133 mL/min (70-130); Calcium 8.3 mg/dL (7.8-10.44); Carbon Dioxide 23 mmol/L (22-29); Chloride 111 mmol/L (98-107); Estimated GFR-MDRD Greater than 90; Glucose 94 mg/dL (70-105); Potassium 3.5 mmol/L (3.5-5.1); Sodium 140 mmol/L (136-145)
--- NOTE | 2017-04-15 06:59 | PDOC.FM ---
- Subjective Subjective: Patient reports still having LOPEZ, body aches, and decreased appetite as well as SOB. Patient with fever of 100.3 overnight. Since then afebrile. Patient reports mass lateral to laryngectomy site that has been present for 1-2months and has recently started "oozing" serous fluid. Mass is painful and pain extends around the left side of his neck to the back of his neck. - Objective MAR Reviewed: Yes Vital Signs & Weight: Vital Signs (12 hours) Temp Pulse Resp BP Pulse Ox 04/15/17 00:00 99.7 F H 103 H 20 112/57 L 04/14/17 20:45 99.5 F 104 H 20 93 L 04/14/17 20:24 99.5 F 104 H 20 144/89 H 93 L Weight Weight 79.56 kg I&O: 04/13/17 04/14/17 04/15/17 06:59 06:59 06:59 Intake Total 1600 Output Total 860 Balance 740 Result Diagrams: 04/15/17 05:15 04/15/17 05:15 Phys Exam - Physical Examination Constitutional: NAD dry MM Laryngectomy site with lateral mass approximately 3-4cm in diameter that is somewhat fluctuant and has central serous drainage Respiratory: no wheezing, no rales, clear to auscultation bilateral Cardiovascular: RRR, no significant murmur Gastrointestinal: soft, non-tender Musculoskeletal: no edema, pulses present Neurological: moves all 4 limbs Psychiatric: A&O x 3 Dx/Plan (1) Influenza Code(s): J11.1 - FLU DUE TO UNIDENTIFIED INFLUENZA VIRUS W OTH RESP MANIFEST Status: Acute (2) Laryngeal squamous cell carcinoma Code(s): C32.9 - MALIGNANT NEOPLASM OF LARYN[place], UNSPECIFIED Status: Acute (3) Normocytic anemia Code(s): D64.9 - ANEMIA, UNSPECIFIED Status: Acute (4) CAD (coronary artery disease) Code(s): I25.10 - ATHSCL HEART DISEASE OF [place] CORONARY ARTERY W/O ANG PCTRS Status: Chronic (5) S/P laryngectomy Status: Chronic (6) Hypothyroidism Code(s): E03.9 - HYPOTHYROIDISM, UNSPECIFIED Status: Chronic (7) HTN (hypertension) Code(s): I10 - ESSENTIAL (PRIMARY) HYPERTENSION Status: Chronic (8) Depression Code(s): F32.9 - MAJOR DEPRESSIVE DISORDER, SINGLE EPISODE, UNSPECIFIED Status : Chronic (9) HLD (hyperlipidemia) Code(s): E78.5 - HYPERLIPIDEMIA, UNSPECIFIED Status: Chronic (10) Hypotension Status: Resolved - Plan Plan: Influenza - likely, respiratory viral panel pending - sx treatment with tylenol for fever/LOPEZ/body aches and IVF for dehydration - Tamiflu - r/o bacterial infection with blood cultures, pending - Continue Vanc and Zosyn until blood cultures negative. Left Lateral Neck Mass - consult ENT - soft tissue neck XR to evaluate for abscess - culture serous drainage Hypotension - resolved with fluid resuscitation - likely 2/2 dehydration - consider AM cortisol to rule out Addisons SCC of Larynx s/p Laryngectomy - outpatient treatment - consult Pulm and ENT for continued care - humidified air Normocytic Anemia - patient hx of bleed back in February and reports has not been on Fe supplements - likely Fe deficiency anemia from depletion of stores - Fe studies pending - Will start Ferrous Sulfate 325mg BID and bowel regimen - repeat H/H tomorrow HTN - hold home meds while hypotensive - will continue to monitor and continue home meds if patient becomes hypertensive HLD - continue home statin Hx of CAD - continue statin and ASA Depression - continue home meds Hypothyroidism - continue home synthroid
[2017-04-15] MEDS: Hydrocodone-Acetamin 15 ML UDCUP PO PRN ×2 (08:29→17:20)
[2017-04-15] MEDS: Pantoprazole 40 MG VIAL IVP SCH (08:29)
[2017-04-15] MEDS ORDERED: Pantoprazole 40 MG VIAL IVP SCH (09:00)
[2017-04-15] MEDS ORDERED: Enoxaparin Sodium 30 MG/0.3 ML SYRINGE SC SCH ×2 (09:00)
[2017-04-15] MEDS: Oseltamivir 6 MG/ML ORAL SUSP PO SCH ×2 (10:00→21:06)
--- NOTE | 2017-04-15 11:55 | CON ---
DATE OF CONSULTATION: 04/15/2017 REASON FOR CONSULTATION: Shortness of breath. HISTORY OF PRESENT ILLNESS: A 56-year-old male who is a patient of Dr. Elver Jaquez. He has a his tory of a laryngectomy after being diagnosed with squamous cell carcinoma of the larynx some time ago . He is currently undergoing intermittent chemotherapy through a doctor down in [place], but his las t chemo was about 1 month ago. He had gone down to see that doctor on Thursday and was about to start chemo, was found to have a fever of 102. He subsequently presented to this hospital for admission. He was found to be hypotensive, which did respond to fluids. He says he has developed a painful lump superior to his laryngectomy site. This has come up over the last 3 days[address] I spoke with Dr. Jaquez about the patient. 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 The patient says he has also had some type of fistulas formation superior to that. PAST MEDICAL HISTORY: 1. Esophageal cancer. 2. Squamous cell carcinoma of the larynx. 3. Anemia. 4. Chronic hypertension. 5. Coronary artery disease. 6. Hypothyroidism. 7. Hyperlipidemia. 8. Depression. PAST SURGICAL HISTORY: 1. Elbow surgery x3. 2. Back surgery. 3. Heart catheterization. 4. Coronary stent placement. 5. Laryngectomy. 6. Right groin hernia repair. 5. Previous bronchoscopies x2 here. ALLERGIES: HYDROCHLOROTHIAZIDE and TRAMADOL. MEDICATIONS: Reviewed in detail and are listed in medication section of the chart. Of note, he is t aking aspirin as an anticoagulant. He is taking formoterol nebulized twice daily. FAMILY MEDICAL HISTORY: Remarkable for coronary artery disease and brain cancer. SOCIAL HISTORY: Quit smoking about 5 years ago. He seldom drinks alcohol. He is fed predominantly through PEG tube, but does take some food orally. REVIEW OF SYSTEMS: Several family members have had influenza A and B. The patient has reportedly be en tested and those results are pending. He has fatigue. He has shortness of breath. He denies any current hemoptysis. He has no chest pain, no hematemesis, no melena, hematochezia. Remainder of 12 -point review of systems are negative. PHYSICAL EXAMINATION: VITAL SIGNS: Temperature 99.7, pulse 103, respirations 20, O2 sat is 92% on room air, blood pressure 112/57. GENERAL: The patient is awake and alert and in no acute distress. HEENT: Pupils react. Sclerae are anicteric. Oropharynx dry. NECK: He has a stoma in place. Superior to the stoma, he has a finger sized firm area just superior to the laryngectomy site, slightly tender to palpation. LUNGS: Clear without wheezing. CARDIAC: S1, S2 regular, without murmur. LABORATORY DATA: Sodium 140, potassium 3.5, chloride 111, CO2 23, BUN 4, creatinine 0.7, glucose 94, white cells 7.2, hemoglobin 7.8, hematocrit 24.6, platelet count 297. CT of the chest was reviewed by myself personally, did not show any evidence of pulmonary embolism or infiltrates. ASSESSMENT: 1. Influenza type illness. 2. Head and neck cancer. 3. Probable spread of tumor superior to the laryngectomy site. This could also be vascular in natur e. 4. History of underlying chronic obstructive pulmonary disease. 5. Numerous other medical problems as listed above. RECOMMENDATIONS: 1. I would recommend that you consult ENT and have them look at the new findings around laryngectomy site. 2. Continue empiric treatment with the antibiotics and the entire influenza medication. His CT of t he chest did not show overt pneumonia, but he could definitely be septic from anything in the neck re gion. 3. I will notify Dr. Jaquez the patient's location.
--- NOTE | 2017-04-15 12:46 | RAD ---
NECK RADIOGRAPH SOFT TISSUE SERIES 2 VIEWS: COMPARISON: Reference is made to 03/10/17. INDICATION: New mass, lateral to laryngectomy site. FINDINGS: Redemonstration of marked abnormal soft tissue prominence of the visualized oropharynx and hypoparyng eal region. This does efface the lumen of the aerodigestive tract in this region. Overlaying metall ic coils are again seen. IMPRESSION: Redemonstration of marked abnormal soft tissues of the regional aerodigestive tract, involving the re gion of the oropharynx to the hypopharyngeal region. POS: [facility]
[2017-04-15] MEDS ORDERED: Iopamidol 370 76% 100 ML VIAL ONE (13:13)
--- NOTE | 2017-04-15 16:28 | CT ---
EXAM: POSTCONTRAST SOFT TISSUE NECK CT: HISTORY: Evaluating swelling around laryngectomy. Possible fistula. COMPARISON: 07/22/16. TECHNIQUE: Postcontrast soft tissue neck CT is performed in the axial plane. Reformatted images are submitted f or interpretation. FINDINGS: The visualized brain parenchyma and orbits are unremarkable. Adequate aeration of the mastoid air ce lls. Mucosal thickening of the sinuses. There is fullness at the level of the adenoid tonsils. This abnormal fullness extends into the poste rior oral cavity, hypopharynx, supraglottic, glottic, and subglottic larynx. Redemonstration of a ne crotic heterogeneous mass essentially obliterating and narrowing the airway. This mass measures 3.8 x 4.6 cm. The mass appears to extend into the superficial dermis. There is leftward deviation of th e trachea. A normal-appearing epiglottis is not appreciated. Preepiglottic fat is obscured. Normal -appearing hyoid bone and thyroid cartilage are also not identified. There may be a minimal amount o f residual thyroid tissue involving the right thyroid lobe. Grossly, the great vessels of the neck a re unremarkable. Extensive postsurgical change in the floor of the mouth, left and right. There is soft tissue edema involving the facial structures. There is enlarged right level I lymph node with a preserved fatty h ilum measuring 1.9 x 0.7 cm. Symmetric edema involving the sternocleidomastoid muscles. Cervical spine is unremarkable. Upper mediastinum demonstrates nonspecific mediastinal lymph nodes i n the peritracheal and prevascular space. There are chronic changes in the lung parenchyma. IMPRESSION: Redemonstration of an oropharyngeal mass which appears to have eroded its way into the dermis, at the expected level of the hyoid bone. There is rightward deviation of the trachea. There is evidence o f progression of tumor along with postoperative changes. Lymphadenopathy in the right level I region is noted. There is edema of the subcutaneous fat. POS: [facility]
[2017-04-15] MEDS: Ferrous Sulfate 325 MG TAB PO SCH ×3 (17:00→18:13)
[2017-04-15] MEDS ORDERED: Cyclobenzaprine 10 MG TAB PO SCH (18:00)
[2017-04-15] MEDS ORDERED: Acetaminophen 650 MG/20.3 ML UDCUP PO PRN (19:59)
[2017-04-15] MEDS: Docusate 100 MG CAP PO SCH (21:05)
[2017-04-16] MEDS: Sodium Chloride 0.9% 1,000 ML IV SCH ×3 (01:40→15:45)
[2017-04-16] MEDS: Hydrocodone-Acetamin 15 ML UDCUP PO PRN (02:42)
[2017-04-16] MEDS: Piperacillin/Tazobactam 4.5 GM in Sodium Chloride 0.9% 100 ML IVPB SCH ×4 (04:22→21:59)
[2017-04-16 05:42] LABS: Vancomycin, Trough 8.7 ug/mL
[2017-04-16] MEDS: Vancomycin HCl 1 GM in Premix Bag 1 BAG IVPB SCH (05:49)
--- NOTE | 2017-04-16 08:12 | PDOC.FM ---
- Subjective Subjective: Patient reports feeling better today despite fever of 100.7 overnight. He also reports left lateral neck mass with increased drainage as he drinks water. He tried to demonstrate but no increase in drainage was seen. Discussed results of CT showing increasing cancer burden. Patient and continue to want everything done in the way of treatment and rescusitation. - Objective MAR Reviewed: Yes Vital Signs & Weight: Vital Signs (12 hours) Temp Pulse Resp BP Pulse Ox 04/16/17 07:34 94 L 04/16/17 05:33 98 04/16/17 04:00 98.7 F 97 16 111/56 L 95 04/16/17 00:00 100.7 F H 116 H 14 120/75 93 L Weight Admit Weight 79.56 kg Weight 75.251 kg I&O: 04/15/17 04/16/17 04/17/17 06:59 06:59 06:59 Intake Total 1600 2954 Output Total 860 2500 Balance 740 454 Result Diagrams: 04/16/17 05:12 04/16/17 05:12 <Ankita Porter - Last Filed: 04/16/17 09:27> - Objective Vital Signs & Weight: Vital Signs (12 hours) Temp Pulse Resp BP Pulse Ox 04/16/17 07:34 94 L 04/16/17 05:33 98 04/16/17 04:00 98.7 F 97 16 111/56 L 95 04/16/17 00:00 100.7 F H 116 H 14 120/75 93 L Weight Admit Weight 79.56 kg Weight 75.251 kg I&O: 04/15/17 04/16/17 04/17/17 06:59 06:59 06:59 Intake Total 1600 2954 Output Total 860 2500 Balance 740 454 Result Diagrams: 04/16/17 05:12 04/16/17 05:12 <Gm Garcia - Last Filed: 04/16/17 10:44> Phys Exam - Physical Examination Constitutional: NAD HEENT: PERRLA, moist MMs, sclera anicteric left lateral neck mass with central scabbing and serous drainage Respiratory: no wheezing, no rales, clear to auscultation bilateral Cardiovascular: RRR, no significant murmur Gastrointestinal: soft, non-tender Musculoskeletal: no edema Neurological: moves all 4 limbs Psychiatric: A&O x 3 <Ankita Porter - Last Filed: 04/16/17 09:27> Dx/Plan (1) Influenza Code(s): J11.1 - FLU DUE TO UNIDENTIFIED INFLUENZA VIRUS W OTH RESP MANIFEST Status: Acute (2) Laryngeal squamous cell carcinoma Code(s): C32.9 - MALIGNANT NEOPLASM OF LARYNX, UNSPECIFIED Status: Acute (3) Normocytic anemia Code(s): D64.9 - ANEMIA, UNSPECIFIED Status: Acute (4) CAD (coronary artery disease) Code(s): I25.10 - ATHSCL HEART DISEASE OF [place] CORONARY ARTERY W/O ANG PCTRS Status: Chronic (5) S/P laryngectomy Status: Chronic (6) Hypothyroidism Code(s): E03.9 - HYPOTHYROIDISM, UNSPECIFIED Status: Chronic (7) HTN (hypertension) Code(s): I10 - ESSENTIAL (PRIMARY) HYPERTENSION Status: Chronic (8) Depression Code(s): F32.9 - MAJOR DEPRESSIVE DISORDER, SINGLE EPISODE, UNSPECIFIED Status : Chronic (9) HLD (hyperlipidemia) Code(s): E78.5 - HYPERLIPIDEMIA, UNSPECIFIED Status: Chronic (10) Hypotension Status: Resolved - Plan Plan: Influenza - respiratory viral panel negative although sx consistent with influenza - sx treatment with tylenol for fever/LOPEZ/body aches and IVF for dehydration - Tamiflu - r/o bacterial infection with blood cultures, negative thus far - CXR with no signs for PNA - Continue Vanc and Zosyn until blood cultures negative x24h Left Lateral Neck Mass - consult ENT, appreciate recs - Head neck CT shows enlarging cancer mass from prior read - culture serous drainage pending Hypotension - resolved with fluid resuscitation - likely 2/2 dehydration - consider AM cortisol to rule out Addisons SCC of Larynx s/p Laryngectomy - outpatient treatment - consult Pulm and ENT for continued care - humidified air - Palliative care consult to continue care Normocytic Anemia - Hg improved today - patient hx of bleed back in February and reports has not been on Fe supplements - likely Fe deficiency anemia from depletion of stores - Fe studies pending - Will start Ferrous Sulfate 325mg BID and bowel regimen - repeat H/H tomorrow HTN - hold home meds while hypotensive - will continue to monitor and continue home meds if patient becomes hypertensive HLD - continue home statin Hx of CAD - continue statin and ASA Depression - continue home meds Hypothyroidism - continue home synthroid <Ankita Porter - Last Filed: 04/16/17 09:27> Attending Addendum - Attending Addendum I personally evaluated the patient and discussed the management with Dr. Porter. I agree with the History, Examination, Assessment and Plan documented above with any addition or exceptions noted below. Neck CT from yesterday shows enlarged tumor, that is likely the mass we are seeing superficially and not an abscess. Awaiting ENT recommendations. Palliative came to spoke to the patient yesterday and he and his refused hospice at this time, still want to be full code and pursue treatment. Resp viral panel was negative. He did fever o/n , vanc trough is low. Will increase dose today and continue antibiotics. <Gm Garcia - Last Filed: 04/16/17 10:44>
[2017-04-16 08:45] LABS: #Eosinphils 0.2 thou/uL (0.0-0.7); #Monocytes 0.7 thou/uL (0.11-0.59); #Neutrophils 6.1 thou/uL (1.40-6.50); %Basophils 0.2 % (0.0-1.0); %Eosinophils 3.1 % (0.0-10.0); %Lymphocytes 12.1 % (21.0-51.0); %Monocytes 8.9 % (0.0-10.0); %Neutrophils 75.7 % (42.0-75.0); Hemoglobin 8.4 g/dL (14.0-18.0); Mean Corpuscular Volume 83.7 fl (80.0-94.0); Platelet Count 329 thou/uL (130-400); RBC Distribution Width 14.3 % (11.5-14.5); Red Blood Cell (RBC) Count 3.24 mill/uL (4.70-6.10)
[2017-04-16 08:57] LABS: Anion Gap 13 mmol/L (10-20); BUN (Urea Nitrogen) 4 mg/dL (8.4-25.7); Calc. Creatinine Clearance 126 mL/min (70-130); Carbon Dioxide 23 mmol/L (22-29); Chloride 107 mmol/L (98-107); Estimated GFR-MDRD Greater than 90; Glucose 100 mg/dL (70-105); Potassium 3.4 mmol/L (3.5-5.1); Sodium 140 mmol/L (136-145)
[2017-04-16] MEDS: Ferrous Sulfate 325 MG TAB PO SCH ×2 (10:10→17:41)
[2017-04-16] MEDS: Oseltamivir 6 MG/ML ORAL SUSP PO SCH ×2 (10:11→21:58)
[2017-04-16] MEDS: Docusate 100 MG CAP PO SCH ×2 (10:11→21:58)
[2017-04-16] MEDS: Pantoprazole 40 MG VIAL IVP SCH (10:12)
[2017-04-16] MEDS: Polyethylene Glycol 3350 17 GM Packet PER TUBE SCH (10:13)
[2017-04-16] MEDS ORDERED: Vancomycin HCl 1.25 GM in Sodium Chloride 0.9% 250 ML 250 ML IVPB SCH (14:00)
--- NOTE | 2017-04-16 17:38 | PRG ---
DATE OF SERVICE: 04/16/2017 SERVICE: Pulmonary Medicine. INTERVAL HISTORY: The patient is doing fine from a cardiovascular and respiratory standpoint. At 3:00 this morning, he continued to have some difficulty breathing until 3:00 this morning. At that time, something busted open on his neck and there was some fluid that drained out of his neck. It had similar consistency to stuff that he had eaten. He then drank some water and it came draining from that neck wound. Since then, he has not had any additional draining from that location. At 3:00 in the morning when this occurred, his abnormal sensation with breathing resolved. He denies any current fevers, chills, nausea, vomiting or chest discomfort. Otherwise, he is returning to his usual state of health and has no specific complaints. PHYSICAL EXAMINATION: VITAL SIGNS: T-max 100.7, currently 100.1, pulse 105, blood pressure 143/94, respirations 20, saturation 95% on room air. GENERAL: Patient is awake, alert, in no apparent distress. LUNGS: Decent air entry. There is slightly prolonged expiratory phase. Some rhonchi are present, but clear with cough. HEART: Normal rate, regular. ABDOMEN: Soft, nontender, nondistended. Bowel sounds are positive. MUSCULOSKELETAL: No cyanosis or clubbing. There is no pitting in the bilateral lower extremities. NEUROLOGIC: Grossly nonfocal. LABORATORY DATA: WBC 8.0, hemoglobin 8.4, platelets 329,000. INR 1.2. Basic metabolic profile is unremarkable except for potassium of 3.4. Lactate was previously unremarkable. Procalcitonin was extraordinarily low, TSH 1.7. BNP was normal. Vancomycin trough 8.7. Respiratory virus panel is unremarkable. Blood cultures are negative to date. There is a bacterial culture from the neck which has no organisms and moderate white blood cells identified. IMAGING: CT of the soft tissue of the neck demonstrates there is resolution of the previously noted pulmonary nodule which is now very clearly pneumonia in retrospect. There is no acute cardiopulmonary abnormality otherwise identified. There are some ground glass attenuation throughout the bilateral lung everett that layers in a way consistent with pulmonary edema. ASSESSMENT: 1. Status post laryngectomy. 2. Squamous cell carcinoma of the tongue. 3. Sepsis. DISCUSSION AND PLAN: We will watch the patient's ins and outs. IV fluids will be interrupted. If he gets to volume up, intermittent dose of Lasix will be provided. Pulmonary will continue to follow during this hospital stay, intermittently. Of note, the CT of the neck her did not demonstrate the previous foreign body. The contrast was given in the correct location. As such , my suspicion is that that was nothing more than a streak artifact as previously noted on the other CT scan of the neck without contrast. Pulmonary will continue to follow intermittently during this hospital stay. No antibiotics are required directed at lung pathologies. MTDD
[2017-04-16] MEDS: Vancomycin HCl 1.25 GM in Sodium Chloride 0.9% 250 ML 250 ML IVPB SCH (17:41)
[2017-04-16] MEDS ORDERED: Diazepam 5 MG TAB PO PRN (20:43)
[2017-04-16] MEDS: Cyclobenzaprine 10 MG TAB PO SCH (21:58)
[2017-04-17] MEDS: Hydrocodone-Acetamin 15 ML UDCUP PO PRN (01:05)
[2017-04-17] MEDS: Vancomycin HCl 1.25 GM in Sodium Chloride 0.9% 250 ML 250 ML IVPB SCH (01:14)
[2017-04-17] MEDS: Piperacillin/Tazobactam 4.5 GM in Sodium Chloride 0.9% 100 ML IVPB SCH (04:48)
[2017-04-17 05:23] LABS: #Eosinphils 0.4 thou/uL (0.0-0.7); #Lymphocytes 1.3 thou/uL (1.20-3.40); #Monocytes 0.7 thou/uL (0.11-0.59); %Basophils 0.1 % (0.0-1.0); %Eosinophils 6.4 % (0.0-10.0); %Lymphocytes 19.7 % (21.0-51.0); %Monocytes 10.6 % (0.0-10.0); %Neutrophils 63.1 % (42.0-75.0); Hemoglobin 8.4 g/dL (14.0-18.0); Mean Corpuscular Hemoglobin 26.5 pg (27.0-31.0); Mean Corpuscular Volume 82.9 fl (80.0-94.0); Mean Platelet Volume 6.7 fL (7.4-10.4); Platelet Count 302 thou/uL (130-400); RBC Distribution Width 14.2 % (11.5-14.5); Red Blood Cell (RBC) Count 3.16 mill/uL (4.70-6.10); White Blood Cell (WBC) Count 6.4 thou/uL (4.8-10.8)
[2017-04-17 05:38] LABS: Anion Gap 11 mmol/L (10-20); BUN (Urea Nitrogen) Less than 4 mg/dL (8.4-25.7); Calc. Creatinine Clearance 142 mL/min (70-130); Carbon Dioxide 23 mmol/L (22-29); Chloride 109 mmol/L (98-107); Estimated GFR-MDRD Greater than 90; Glucose 93 mg/dL (70-105); Potassium 3.5 mmol/L (3.5-5.1); Sodium 139 mmol/L (136-145)
--- NOTE | 2017-04-17 06:10 | PDOC.FM ---
- Subjective Subjective: Patient sleeping comfortably. Afebrile overnight. Feeling better every day. No acute events overnight. - Objective MAR Reviewed: Yes Vital Signs & Weight: Vital Signs (12 hours) Temp Pulse Resp BP Pulse Ox 04/17/17 04:00 97.6 F 92 18 126/87 96 04/17/17 01:34 96 04/16/17 19:20 99.5 F 111 H 18 133/86 96 Weight Admit Weight 79.56 kg Weight 75.024 kg I&O: 04/15/17 04/16/17 04/17/17 06:59 06:59 06:59 Intake Total 1600 2954 1837 Output Total 860 2500 925 Balance 740 454 912 Result Diagrams: 04/17/17 05:03 04/17/17 05:03 <Ankita Porter - Last Filed: 04/17/17 09:27> - Objective Vital Signs & Weight: Vital Signs (12 hours) Temp Pulse Resp BP Pulse Ox 04/17/17 09:18 99.6 F 98 16 121/80 97 04/17/17 04:00 97.6 F 92 18 126/87 96 04/17/17 01:34 96 Weight Admit Weight 79.56 kg Weight 75.024 kg I&O: 04/16/17 04/17/17 04/18/17 06:59 06:59 06:59 Intake Total 2954 2897 Output Total 2500 2350 Balance 454 547 Result Diagrams: 04/17/17 05:03 04/17/17 05:03 <Gm Garcia - Last Filed: 04/17/17 10:52> Phys Exam - Physical Examination Constitutional: NAD L lateral mass stable with central scabbing and no drainage Respiratory: no wheezing, no rales, clear to auscultation bilateral Cardiovascular: RRR, no significant murmur Gastrointestinal: soft, non-tender Musculoskeletal: no edema Psychiatric: A&O x 3 <Ankita Porter - Last Filed: 04/17/17 09:27> Dx/Plan (1) Influenza Code(s): J11.1 - FLU DUE TO UNIDENTIFIED INFLUENZA VIRUS W OTH RESP MANIFEST Status: Suspected (2) Laryngeal squamous cell carcinoma Code(s): C32.9 - MALIGNANT NEOPLASM OF [place], UNSPECIFIED Status: Chronic (3) Normocytic anemia Code(s): D64.9 - ANEMIA, UNSPECIFIED Status: Acute (4) CAD (coronary artery disease) Code(s): I25.10 - ATHSCL HEART DISEASE OF [place] CORONARY ARTERY W/O ANG PCTRS Status: Chronic (5) S/P laryngectomy Status: Chronic (6) Hypothyroidism Code(s): E03.9 - HYPOTHYROIDISM, UNSPECIFIED Status: Chronic (7) HTN (hypertension) Code(s): I10 - ESSENTIAL (PRIMARY) HYPERTENSION Status: Chronic (8) Depression Code(s): F32.9 - MAJOR DEPRESSIVE DISORDER, SINGLE EPISODE, UNSPECIFIED Status : Chronic (9) HLD (hyperlipidemia) Code(s): E78.5 - HYPERLIPIDEMIA, UNSPECIFIED Status: Chronic (10) Hypotension Status: Resolved - Plan Plan: Influenza - improving - respiratory viral panel negative although sx consistent with influenza or influenza-like illness - sx treatment with tylenol for fever/LOPEZ/body aches and IVF for dehydration - continue Tamiflu - bacterial cx negative x48h, d/c Abx - CXR and CT with no signs for PNA - likely d/c pending workup on L lateral neck mass Left Lateral Neck Mass - patient describes food particles and liquid that he drinks draining from the mass, describing possible fistula - consult ENT, appreciate recs, needle biopsy today - Head neck CT shows enlarging cancer mass from prior read - culture serous drainage, no growth to date Hypotension - resolved with fluid resuscitation - likely 2/2 dehydration SCC of Larynx s/p Laryngectomy - outpatient treatment - consult Pulm and ENT for continued care, appreciate recs - humidified air - Palliative care consult to continue care Normocytic Anemia - Hg stable - patient hx of bleed back in February and reports has not been on Fe supplements - likely Fe deficiency anemia from depletion of stores - Will start Ferrous Sulfate 325mg BID and bowel regimen - repeat H/H tomorrow HTN - BP remain wnl - will continue to monitor and continue home meds if patient becomes hypertensive HLD - continue home statin Hx of CAD - continue statin and ASA Depression - continue home meds Hypothyroidism - continue home synthroid <Ankita Porter - Last Filed: 04/17/17 09:27> Attending Addendum - Attending Addendum I personally evaluated the patient and discussed the management with Dr. Porter. I agree with the History, Examination, Assessment and Plan documented above with any addition or exceptions noted below. Plan per ENT to biopsy the growing mass. BP is doing better, will dc amlodipine due to concern for low pressures. Abx have been discontinued, no concern for pna per pulm. Possible d/c this afternoon pending ENT recs. <Gm Garcia - Last Filed: 04/17/17 10:52>
--- NOTE | 2017-04-17 09:02 | PQF ---
CLINICAL DOCUMENTATION IMPROVEMENT CLARIFICATION FORM: ICD-10 Updated PLEASE DO AN ADDENDUM TO THE PROGRESS NOTE WITH ANY DOCUMENTATION UPDATES OR ADDITIONS AND CARRY THROUGH TO DC SUMMARY. THANK YOU. DATE: 04/17 ATTN: DR. PRINCE WOODWARD/ DR. ANGELICA ALDRIDGE Please exercise your independent, professional judgment in responding to the clarification form. Clinical indicators are provided on the bottom of this form for your review. Please check appropriate box(s) to clarify if the following diagnosis has been ruled in or ruled out: SEPSIS, LIKELY 2/2 INFLUENZA [ ] Ruled in diagnosis [ ] Continue to treat [ ] Resolved [ x ] Ruled out diagnosis [ x ] Other diagnosis __Sepsis,resolved, Influenza-like Illness [ ] Unable to determine For continuity of documentation, please document condition throughout progress notes and discharge summary. Thank You. CLINICAL INDICATORS - SIGNS / SYMPTOMS / LABS ER PRESENTATION 04/14: T: 99.3 RR: 17-22 BP: 73/42 - 120/72 LACTIC ACID: 2.4 REC'D: 2L NS, IV VANCOMYCIN & ZOSYN ER PHYSICIAN DOCUMENTATION: PATIENT STATES FEVER AT HOME OF 102.9 ATTENDING PHYSICIAN H&P DOCUMENTATION 04/14: ASSESSMENT/PLAN: 1) SEPSIS, LIKELY 2/2 INFLUENZA ATTENDING PN 04/15: SUBJECTIVE: PATIENT W/FEVER OF 100.3 OVER NIGHT. DX/PLAN: 1) INFLUENZA ATTENDING PN 04/16, & : DX/PLAN: 1) INFLUENZA NO FURTHER DOCUMENTATION OF SEPSIS TO DATE RISK FACTORS: LARYNGEAL SQUAMOUS CELL CARCINOMA IMMUNOSUPPRESSED FEVER TREATMENTS: IV ANTIBIOTICS (ZOSYN 04/14 - PRESENT; VANCOMYCIN 04/14 -) IVF (NS 04/14 - ) TAMIFLU (04/14 - PRESENT) THANK YOU! Ghada (This form is maintained as a part of the permanent medical record) 2014 [employer]. All Rights Reserved Ghada Thompson RN, BSN [email or web address] Office: [phone] [facility]
[2017-04-17] MEDS: Ferrous Sulfate 325 MG TAB PO SCH (09:22)
[2017-04-17] MEDS: Cyclobenzaprine 10 MG TAB PO SCH ×2 (09:23→16:00)
[2017-04-17] MEDS: Docusate 100 MG CAP PO SCH (09:23)
[2017-04-17] MEDS: Pantoprazole 40 MG VIAL IVP SCH (09:26)
[2017-04-17] MEDS: Oseltamivir 6 MG/ML ORAL SUSP PO SCH (09:26)
[2017-04-17] MEDS: Polyethylene Glycol 3350 17 GM Packet PER TUBE SCH (09:26)
[2017-04-17] MEDS ORDERED: Non-Formulary Item 1 EACH (Prochlorperazine Maleate [Compazine] 10 MG) PO PRN (09:29)
[2017-04-17] MEDS ORDERED: Prochlorperazine Maleate 5 MG TAB PO PRN (09:39)
[2017-04-17] MEDS ORDERED: Nystatin 500,000 UNITS/5 ML UDCUP SSW SCH (09:45)
[2017-04-17 11:26] VITALS: BP 157/94; TEMP 99.4
[2017-04-17 12:47] VITALS: BMI 26.6
--- NOTE | 2017-04-17 15:47 | PRG ---
DATE OF SERVICE: 04/17/2017 SERVICE: Pulmonary Medicine. INTERVAL HISTORY: The patient is doing really well from a cardiovascular and respiratory standpoint. He is breathing comfortably on room air. He denies any current fevers, chills, nausea or vomiting. He has some chest wall discomfort. He thinks he slept little funny and whenever he moves his arm, it pulls on the left chest wall. He thinks is going to work itself at over time. Otherwise, there has been no change to his condition. PHYSICAL EXAMINATION: VITAL SIGNS: Afebrile with a T-max of 100.1, pulse 104, blood pressure 157/94, respirations 18, saturation 92% on room air. GENERAL: The patient is awake and alert, in no apparent distress. LUNGS: Decent air entry. There is a slightly prolonged expiratory phase. There is no wheezing. No rhonchi or crackles are present. HEART: Normal rate, regular. ABDOMEN: Soft, nontender, nondistended. Bowel sounds are positive. MUSCULOSKELETAL: No cyanosis or clubbing. No pitting in the bilateral lower extremities. NEUROLOGIC: Grossly nonfocal. LABORATORY DATA: WBC 6.4, hemoglobin 8.4, platelets 302,000. Basic metabolic profile is unremarkable. Blood cultures x2 and respiratory virus panel are negative. ASSESSMENT: 1. Status post laryngectomy. 2. Squamous cell carcinoma of the tongue, with local recurrence. 3. Severe sepsis, resolved. DISCUSSION AND PLAN: The patient is doing really well. From a purely respiratory perspective, he can be considered for transition out of the hospital today. I will continue to follow intermittently if he remains in house. I previously scheduled for him to see me in clinic, with a repeat CT of the chest to make certain the pulmonary nodule went away. The CT scan that we did most recently demonstrated resolution of that pulmonary nodule/infiltrate, which clearly suggested that it was pneumonia. Furthermore, he requires no additional imaging studies. I have shared this with him and his today. MARIANNE
[2017-04-17] MEDS ORDERED: Non-Formulary Item 1 EACH (Ranitidine Hcl [Ranitidine Hcl] 150 MG) PO SCH (21:00)
[2017-04-17] MEDS ORDERED: Metoprolol Tartrate 25 MG TAB PO SCH (21:00)
[2017-04-17] MEDS ORDERED: Famotidine 20 MG TAB PO SCH (21:00)
--- NOTE | 2017-04-20 09:26 | DIS-2 ---
DATE OF ADMISSION: 04/14/2017 DATE OF DISCHARGE: 04/17/2017 RESIDENT: Ankita Porter D.O. ADMITTING ATTENDING: Michael Chung M.D. DISCHARGE ATTENDING: Gm Garcia M.D. CONSULTATIONS: 1. Pulmonology, Isaiah Reyes M.D./Elver Jaquez M.D. 2. ENT. PROCEDURES/IMAGIN. Chest x-ray showed no acute intrathoracic disease. Percutaneous gastrostomy catheter in the left upper quadrant and left lower chest. No evidence of pneumonia or acute process. 2. Chest and thorax CTA showed no evidence of pulmonary embolus and no acute lung process. 3. Soft tissue neck x-ray shows redemonstration of marked abnormal soft tissues of the regional area of digestive tract involving the region of the oropharynx and hypopharyngeal region. 4. Soft tissue neck CT showing again oropharyngeal mass which had eroded its way into the dermis at the level of the hyoid bone. Rightward deviation of the trachea and progression of the tumor along with postoperative changes. PRIMARY DIAGNOSES: 1. Sepsis secondary to influenza-like illness. 2. Laryngeal squamous cell carcinoma, status post laryngectomy. 3. Chronic normocytic anemia. 4. Hyperlipidemia. 5. Hypothyroidism. 6. Depression. 7. Coronary artery disease status post stent. SECONDARY DIAGNOSIS: None. DISCHARGE MEDICATIONS: 1. Diazepam 10 mg p.o. at bedtime p.r.n. 2. Tessalon 200 mg p.o. t.i.d. p.r.n. 3. MiraLax 17 grams p.o. daily. 4. Brovana 15 mcg nebulized b.i.d. 5. Compazine 10 mg p.o. q.6 hours p.r.n. 6. Colace 100 mg p.o. b.i.d. 7. Imdur 60 mg p.o. daily. 8. Mucinex 1200 mg p.o. b.i.d. 9. Nystatin 10 mL swish and swallow b.i.d. 10. Gabapentin 600 mg p.o. t.i.d. 11. Aspirin 324 mg p.o. daily. 12. Amitriptyline 25 mg p.o. at bedtime. 13. Amicar 10 mL p.o. every 2 hours p.r.n. 14. Cyclobenzaprine HCL 10 mg p.o. t.i.d. 15. Atorvastatin calcium 40 mg p.o. at bedtime. 16. Diclofenac sodium 50 mg p.o. daily. 17. Lopressor 12.5 mg p.o. b.i.d. 18. Synthroid 150 mcg p.o. daily. 19. Nitroglycerin 0.4 mg sublingual p.r.n. chest pain. 20. Morphine sulfate 30 mg p.o. q.12 hours p.r.n. 21. Promethazine DM syrup 5 mL p.o. q.8 h. 22. Afrin nasal spray 2-3 sprays each naris b.i.d. p.r.n. 23. Oxymetazoline HCL nasal spray 1 spray each naris b.i.d. p.r.n. 24. Ranitidine HCL 150 mg p.o. b.i.d. 25. Pantoprazole sodium 40 mg p.o. b.i.d. 26. Ranexa 500 mg p.o. b.i.d. 27. Potosi 7.5 mg/325 mg/15 mL solution, 15 mL p.o. q.4 h. p.r.n. 28. Ferrous sulfate 325 mg p.o. b.i.d. DISCONTINUED MEDICATIONS: Amlodipine 10 mg. HISTORY OF PRESENT ILLNESS AND HOSPITAL COURSE: The patient is a 57-year-old male with past medical history of squamous cell carcinoma of the larynx status post laryngectomy, who presented to the ER with dyspnea, fever, body aches, and generalized weakness for the past 2 days. He had a positive flu exposure from . On admission, his blood pressure was 73/42, however, responded well to IV fluids. Respiratory viral panel was performed and found to be negative, although symptoms pointed towards influenza-like illness. The patient was started on Tamiflu. In addition to his Tamiflu, patient was also started on vancomycin and Zosyn and deescalated off once blood cultures were negative. With initial presentation of sepsis, a chest x-ray was performed and found to have no evidence of pneumonia as well as urine studies and urine culture and blood cultures, which were negative. The patient was also reporting shortness of breath. A CTA was done to rule out pulmonary embolism and found to be negative as well as confirming negative pneumonia. Patient was treated symptomatically and placed on IV fluids. He responded well and no longer had any hypotension episodes and gradually began to feel better. During his hospital stay, patient also reports a left lateral mass to laryngectomy site. ENT as well as Pulmonology were consulted and soft tissue neck x-ray and a CT were performed. It was initially concerned that this may be a fistula of sort or additional tumor. Imaging studies point towards a growing or expanding tumor, possibly although diagnosis is not certain at this time. ENT was consulted and will follow up with outpatient biopsy or scope to further evaluate. The patient was also found to have a low hemoglobin on admission of 8.2, which remained stable. The patient had an episode of bleeding back in February from laryngectomy and reports has not been on iron since, that is likely the cause of his anemia. In regard to his hypertension diagnosis, patient initially presented with hypotension, resolved with IV fluid hydration and then remained in normal range without blood pressure medication. The patient was restarted on beta sherron, but discontinued amlodipine due to possibility of causing hypotension. In regard to other chronic medical conditions, patient was restarted on home medications and remained stable. DISPOSITION: Stable. DISCHARGE INSTRUCTIONS: 1. Location: Home. 2. Diet: The patient eats softened foods by mouth, then uses a PEG tube for additional calories, will continue. 3. Activity: As tolerated. 4. Follow up with ENT next week and it should be in 1-2 weeks. Also follow up with oncologist, keep appointment as scheduled. MARIANNE
== END 2017-04-17 16:20 | disposition home or self-care (01) | DRG 872 ==
LOC: ERS 14:09 → 2NO 16:33
PROVIDERS: ADMIT Family Medicine; ATTEND Family Medicine
DX: A41.9 Sepsis, unspecified organism (principal); C32.9 Malignant neoplasm of larynx, unspecified; E03.9 Hypothyroidism, unspecified; E78.5 Hyperlipidemia, unspecified; D64.9 Anemia, unspecified; I10 Essential (primary) hypertension; J44.9 Chronic obstructive pulmonary disease, unspecified; I25.10 Atherosclerotic heart disease of native coronary artery without angina pectoris; F32.9 Major depressive disorder, single episode, unspecified; Z87.891 Personal history of nicotine dependence; R65.20 Severe sepsis without septic shock; J11.1 Influenza due to unidentified influenza virus with other respiratory manifestations; Z66 Do not resuscitate
CPT/HCPCS: 36415; 70360; 70491; 71045; 71275; 80048; 80053; 80202; 82274; 82553; 83605; 83690; 83880; 84145; 84443; 84484; 85025; 85379; 85610; 85730; 87040; 87070; 87205; 87633; 93005; 94640; 94760; 96361; 96365; A4216; C9113; G8978-GP-CJ; G8979-GP-CJ; G8980-GP-CJ; G8996-GN-CM; G8997-GN-CL; J1650; J2543; J3370; J7050; J7620

== ENCOUNTER 2017-04-28 15:07 | Inpatient (IN) | payer MEDICARE ==
[2017-04-28 15:35] LABS: Base Excess-Venous -0.5 mmol/L (-30.0-30.0); Bicarbonate (HCO3v) 25.6 mmol/L (1.0-85.0); CO2 Tension (PvCO2) 48.2 mmHg (41.0-51.0); Calcium, Ionized 1.23 mmol/L (1.12-1.32); Hemoglobin - Calc 8.7 g/dL (12.0-18.0); Lactate 4.21 mmol/L (0.50-2.20); Potassium 3.7 mmol/L (3.4-4.7); pH (Venous) 7.332 (7.35-7.45); vO2 Saturation-calc 37.9 % (0.0-100.0)
[2017-04-28] MEDS ORDERED: Lorazepam 2 MG/ML VIAL ONE (15:41)
[2017-04-28 15:51] LABS: #Eosinphils 0.4 thou/uL (0.0-0.7); %Basophils 0.3 % (0.0-1.0); %Eosinophils 3.1 % (0.0-10.0); %Lymphocytes 15.9 % (21.0-51.0); %Monocytes 7.7 % (0.0-10.0); Hemoglobin 7.1 g/dL (14.0-18.0); Mean Corpuscular HGB CONC 31.5 g/dL (32.0-36.0); Mean Corpuscular Hemoglobin 25.6 pg (27.0-31.0); Mean Corpuscular Volume 81.2 fl (80.0-94.0); Mean Platelet Volume 7.2 fL (7.4-10.4); Platelet Count 503 thou/uL (130-400); RBC Distribution Width 14.8 % (11.5-14.5); Red Blood Cell (RBC) Count 2.77 mill/uL (4.70-6.10); White Blood Cell (WBC) Count 12.3 thou/uL (4.8-10.8)
[2017-04-28 16:14] LABS: ALT (SGPT) 38 U/L (8-55); AST (SGOT) 43 U/L (5-34); Albumin 2.8 g/dL (3.5-5.0); Alkaline Phosphatase 87 U/L (40-150); Anion Gap 17 mmol/L (10-20); BUN (Urea Nitrogen) 7 mg/dL (8.4-25.7); Bilirubin, Total 0.5 mg/dL (0.2-1.2); Calc. Creatinine Clearance 0 mL/min (70-130); Calcium 8.8 mg/dL (7.8-10.44); Carbon Dioxide 21 mmol/L (22-29); Chloride 102 mmol/L (98-107); Estimated GFR-MDRD 68; Globulin 3.1 g/dL (2.4-3.5); Glucose 150 mg/dL (70-105); Potassium 3.6 mmol/L (3.5-5.1); Protein, Total 5.9 g/dL (6.0-8.3); Sodium 136 mmol/L (136-145)
[2017-04-28 16:18] LABS: Bilirubin Negative (Negative); Blood, Urine Moderate (Negative); Clarity CLEAR (Clear); Glucose, Urine (Dipstick) Negative (Negative); Leukocyte Small (Negative); Nitrite Negative (Negative); Protein, Urine (Dipstick) Negative (Neg-Trace); Specific Gravity, Urine 1.017 (1.002-1.036)
[2017-04-28 16:21] LABS: INR-International Normal Ratio 1.2; PTT 28.3 SEC (22.9-36.1); Prothrombin Time 15.5 SEC (12.0-14.7)
[2017-04-28 16:23] LABS: Bacteria/HPF None Seen HPF (None Seen); Pathc Cast-AUWi Flag 1.89 (0-2.49); Squamous Epithelial 0-3 HPF (0-3); WBC/HPF 0-3 HPF (0-3)
[2017-04-28 16:34] LABS: Hyaline Casts/LPF 0-3 HYALINE CAST LPF (0-3 Hyaline)
[2017-04-28 16:35] LABS: Renal Epithelial None Seen HPF (0-3); Transitional Epithelial NONE SEEN HPF (0-3)
[2017-04-28] MEDS ORDERED: Ondansetron HCl/PF 4 MG/2 ML Vial IVP PRN (18:07)
[2017-04-28] MEDS ORDERED: Calcium Carbonate 500 MG ChewTAB PO PRN (18:07)
[2017-04-28] MEDS ORDERED: Diazepam 5 MG TAB PO PRN (18:07)
[2017-04-28] MEDS ORDERED: Ondansetron ODT 4 MG TAB PO PRN (18:07)
[2017-04-28 18:11] VITALS: BMI 19.5
[2017-04-28] MEDS: Sodium Chloride 0.9% 1,000 ML IV SCH ×2 (18:27→21:25)
[2017-04-28] MEDS: Arformoterol 15 MCG/2 ML NEB NEB SCH (19:06)
[2017-04-28 19:41] LABS: Lactic Acid 1.3 mmol/L (0.5-2.2)
--- NOTE | 2017-04-28 20:24 | HP-2 ---
DATE OF ADMISSION: 04/28/2017 CODE STATUS: DNR. PRIMARY CARE PHYSICIAN: Dr. Soler. ATTENDING: Leyla Bear M.D. RESIDENT: Domingo Soler, PGY1. HISTORIAN: The patient's as the patient has a trach and is unable to speak at this time. CHIEF COMPLAINT: Bleeding from stoma. HISTORY OF PRESENT ILLNESS: This is a 57-year-old male that was out picking up chicken for a birthda y green party, went to grab and had a little syncopal episode and fell down, never lost consciousness. Whe n his went to go help him up, he started bleeding out of his stoma. It was a large amount of bl eeding pulsatile, came in to the ER and again was still bleeding. ENT said it did not look good. Th is is a patient that has a known history over the last few months of having laryngeal cancer and dian ng a tumor/fistula that has been growing ever closer to his right carotid. ENT at this time suspects that the tumor has now infiltrated into the carotid artery and that is where he is bleeding from. H e denies any recent illness. Denies any cough, fevers, chills or anything like that. I am not sure what has been causing these little episodes of syncope. says he does not pass out, but just get s weak and falls over. Still says that he has some shortness of breath episodes at times. PAST MEDICAL HISTORY: Include, 1. History of esophageal cancer. 2. Squamous cell carcinoma of the larynx. 3. Normocytic anemia. 4. Chronic obstructive pulmonary disease. 5. Hypertension. 6. Coronary artery disease. 7. Depression. 8. Hyperlipidemia. 9. Hypothyroidism. PAST SURGICAL HISTORY: Includes, 1. Laryngectomy. 2. Heart catheterization, status post right coronary stent. 3. Back surgery. 4. Elbow surgery x2. 5. Right groin hernia repair. 6. Fistula with recent bronchoscopy. ALLERGIES: Include HYDROCHLOROTHIAZIDE and TRAMADOL. MEDICATIONS: Include, 1. Pantoprazole 40 mg b.i.d. 2. Aspirin 81 mg p.o. daily. 3. Atorvastatin calcium 40 mg p.o. at bedtime. 4. Lisinopril 20 mg p.o. daily. 5. Gabapentin 600 mg p.o. t.i.d. 6. Diazepam 10 mg p.o. at bedtime p.r.n. 7. Mucinex 1200 mg p.o. b.i.d. p.r.n. 8. Nystatin oral suspension 10 mL b.i.d. 9. Tessalon 200 mg p.o. t.i.d. 10. Promethazine DM syrup 5 mL p.o. q.8 h. 11. Nitroglycerin 0.4 mg sublingual p.r.n. 12. Morphine sulfate extended release 20 mg p.o. q.12 hours p.r.n. 13. Diclofenac sodium 50 mg p.o. daily. 14. Cyclobenzaprine 10 mg p.o. t.i.d. 15. Formoterol 10 mcg nebulized b.i.d. 16. Amlodipine besylate 5 mg p.o. daily. 17. Amitriptyline hydrochloride 25 mg p.o. at bedtime. 18. Hydrocodone 15 mL p.o. q.4 h. p.r.n. 19. Metoprolol tartrate 12.5 mg p.o. b.i.d. 20. Ranitidine 300 mg p.o. at bedtime. 21. Synthroid 150 mcg p.o. daily. 22. Ranexa 500 mg mg p.o. b.i.d. 23. Aminocaproic acid 10 mL p.o. q.2 h. p.r.n. 24. Oxymetazoline 1 spray each naris b.i.d. p.r.n. 25. Isosorbide mononitrate 60 mg p.o. daily. FAMILY HISTORY: Mother with coronary artery disease and father with brain cancer. SOCIAL HISTORY: The patient quit smoking 5 years ago. He states that he drinks seldomly. Denies an y drug use. The patient is and lives at his home with his . REVIEW OF SYSTEMS: Include cough, shortness of breath, and chest pain off and on. All other review of systems not listening in HPI are otherwise negative at this time. PHYSICAL EXAMINATION: VITAL SIGNS: Blood pressure is 95/64, pulse is 96, respirations are 26, temperature is 98.8, pulse o x is 98% on nonrebreather. GENERAL: He is alert and oriented. He is well-developed, well-nourished. He is appropriately inter active. EYES: Conjunctivae within normal limits. ENT: Nasal mucosa within normal limits. Oropharynx is bloody. NECK: Intact. Has a trach in place. Blood noted. No acute bleed noted on the exam. CARDIOVASCULAR: Regular rate and rhythm. No murmur or gallops. Radial pulses, pedal pulses palpate d bilaterally. RESPIRATORY: Had normal breathing effort, no retractions. Lungs, bilateral crackles noted in lungs bilaterally. SKIN: Warm, dry. No cyanosis. No lesions. ABDOMEN: Soft, nontender to palpation. Bowel sounds heard in all 4 quadrants. No masses or distent ion. EXTREMITIES: No edema, no pitting. MUSCULOSKELETAL: Structure within normal limits. Tone within normal limits. Full range of motion. NEUROLOGIC: No focal neuro deficit. LABORATORY DATA: White blood cell count was 12.3, hemoglobin 7.1, hematocrit was 22.5, 73% neutrophi ls, 9.0 bands, platelets 503. Sodium was 136, potassium 3.6, chloride was 102, bicarbonate was 21, B UN was 7, creatinine was 1.11, glucose was 150, calcium 8.8, total protein 5.9, albumin 2.8, total bi lirubin 0.5, AST 43, ALT 38, alkaline phosphatase 87. PT 15.5, INR of 1.2, aPTT 28.3. UA showed bradford e moderate blood, small leukocyte esterase, negative everywhere else. ASSESSMENT AND PLAN: 1. Acute blood loss, likely secondary to an infiltrated right carotid artery from a laryngeal esopha geal cancer. 2. ENT, Dr. Whitaker was consulted. He came and placed a trach in place to protect the airway. He wa s typed and crossed, 2 units of red blood cells transfused due to the amount that he was bleeding. W e will continue to check H&H q.4 h. We will transfuse him if he drops below 7 on hemoglobin or if he becomes unstable, blood pressure begins to drop overnight. After talking with Dr. Whitaker, Dr. Whitaker said there was nothing more we could really do for the infiltrated carotid. He said at this time th at the best option for the patient would be to go home with hospice and he needs to determine what fu rther care he wants. We have consulted palliative and hospice. Patient said at this time, he would like to be a DNR, get all medical measures to be kept alive at least through the night. We will put him on pressors if needed if his blood pressures drops low. We will continue to transfuse. Continue on H&H. We will continue fluid at a rate of 175. We will continue to monitor him closely overnight . 3. Laryngeal squamous cell carcinoma, status post laryngectomy. At this time, there is nothing more we can do for the tumor growing. We will continue to monitor. Supportive care. 4. Hyperlipidemia. We will continue his home medications. 5. Hypothyroidism. We are holding his home medication. 6. Depression. Continue his home medications. 7. Coronary artery disease status post stent. I am holding his aspirin and all his blood pressure m edications at this time due to the bleeding. 8. Gastrointestinal prophylaxis, Protonix and hypertension. We are going to hold his home medicatio ns as he will likely get hypotensive from acute blood loss.
[2017-04-28] MEDS: Gabapentin 300 MG CAP PO SCH (20:42)
[2017-04-28 22:05] LABS: Hemoglobin 8.3 g/dL (14.0-18.0); Mean Corpuscular HGB CONC 32.4 g/dL (32.0-36.0); Mean Corpuscular Hemoglobin 26.7 pg (27.0-31.0); Mean Corpuscular Volume 82.6 fl (80.0-94.0); Mean Platelet Volume 6.9 fL (7.4-10.4); Platelet Count 394 thou/uL (130-400); White Blood Cell (WBC) Count 13.1 thou/uL (4.8-10.8)
[2017-04-28] MEDS: Lorazepam 2 MG/ML VIAL SLOW IVP PRN (23:10)
[2017-04-29 01:38] LABS: Hemoglobin 7.1 g/dL (14.0-18.0); Mean Corpuscular HGB CONC 32.8 g/dL (32.0-36.0); Mean Corpuscular Hemoglobin 27.1 pg (27.0-31.0); Mean Corpuscular Volume 82.6 fl (80.0-94.0); Mean Platelet Volume 6.6 fL (7.4-10.4); Platelet Count 324 thou/uL (130-400); RBC Distribution Width 14.7 % (11.5-14.5); Red Blood Cell (RBC) Count 2.61 mill/uL (4.70-6.10); White Blood Cell (WBC) Count 10.9 thou/uL (4.8-10.8)
[2017-04-29] MEDS: Sodium Chloride 0.9% 1,000 ML IV SCH ×3 (05:34→17:57)
--- NOTE | 2017-04-29 06:09 | PDOC.FM ---
- Subjective Subjective: Pt unable to speak due to trach in place. Pt becoming tachycardic. His face is swelling and he is having some pain. Discussed goals of care with patient and daughter in the room. At this time they were unsure about withdrawing full care. Will come back and talk with them later. - Objective MAR Reviewed: Yes Vital Signs & Weight: Vital Signs (12 hours) Temp Pulse Resp Pulse Ox 04/29/17 02:00 99.2 F 04/28/17 23:00 100.8 F H 04/28/17 20:00 100.5 F H 97 22 H 96 04/28/17 19:06 96 20 100 04/28/17 18:11 98.6 F 04/28/17 18:07 28 H 100 Weight Weight 74.6 kg Most Recent Monitor Data Heart Rate from ECG 103 NIBP 147/80 NIBP BP-Mean 107 Respiration from ECG 28 SpO2 97 I&O: 04/27/17 04/28/17 04/29/17 06:59 06:59 06:59 Intake Total 1936 Output Total 523 Balance 1413 Result Diagrams: 04/29/17 07:55 04/28/17 15:18 EKG Reviewed by me: Yes <Domingo Soler - Last Filed: 04/29/17 08:31> - Objective Vital Signs & Weight: Vital Signs (12 hours) Temp Pulse Resp Pulse Ox 04/29/17 12:00 98.7 F 04/29/17 08:00 100.3 F H 102 H 24 H 04/29/17 07:26 97 04/29/17 07:15 112 H 32 H 97 04/29/17 05:00 99.5 F Weight Weight 74.6 kg Most Recent Monitor Data Heart Rate from ECG 90 NIBP 118/77 NIBP BP-Mean 88 Respiration from ECG 20 SpO2 99 I&O: 04/28/17 04/29/17 04/30/17 06:59 06:59 06:59 Intake Total 1936 Output Total 648 840 Balance 1288 -840 Result Diagrams: 04/29/17 11:45 04/28/17 15:18 <Sammi Wesley - Last Filed: 04/29/17 15:33> Phys Exam - Physical Examination Constitutional: NAD Face is swollen, trach in place, guaze in place bloody Has stoma in place. increased vasculature from radiation gauze in place, bloddy crackles hear bilaterally Cardiovascular: RRR, no significant murmur, no rub Gastrointestinal: soft, non-tender, no distention, positive bowel sounds Musculoskeletal: pulses present Neurological: non-focal, normal sensation, moves all 4 limbs Lymphatic: no nodes Psychiatric: normal affect Skin: no rash, normal turgor <KlecanDomingo - Last Filed: 04/29/17 08:31> Dx/Plan (1) Carotid artery injury Code(s): S15.009A - UNSP INJURY OF UNSPECIFIED CAROTID ARTERY, INIT ENCNTR Status: Acute (2) Laryngeal squamous cell carcinoma Code(s): C32.9 - MALIGNANT NEOPLASM OF LARYNX, UNSPECIFIED Status: Chronic (3) COPD (chronic obstructive pulmonary disease) Status: Chronic (4) HTN (hypertension) Code(s): I10 - ESSENTIAL (PRIMARY) HYPERTENSION Status: Chronic (5) Hypothyroidism Code(s): E03.9 - HYPOTHYROIDISM, UNSPECIFIED Status: Chronic (6) S/P laryngectomy Status: Chronic (7) Personal history of esophageal cancer Code(s): Z85.01 - PERSONAL HISTORY OF MALIGNANT NEOPLASM OF ESOPHAGUS Status: Chronic (8) Angina at rest Code(s): I20.8 - OTHER FORMS OF ANGINA PECTORIS Status: Chronic - Plan Plan: Acute Blood loss 2/2 R. Carotid Injury from Laryngeal Ca -pt came in with pulsatile blood from his stoma upon admission. ENT came and placed trach. Talking with Dr. Whitaker says that tumor likely has infiltrated his carotid A. On last admission 04/14/17, CT of neck showed tumor right by the carotid artery. This has been concern for last few months. Likely infiltrated or developed fistula. -Hgb 8.0 on latest check. Staying stable at this time. ENT consulted by ER- Dr. Whitaker- Will follow recs. Nothing further we can do. Trach placed -Pt DNR. Providing supportive care with fluids, blood products and pressers needed at this time. -Hospice/Palliative care consulted- To discuss going home. Pt would eventually like to go home. Will have further discussions with him and family at this time. Family unsure about withdrawing care. Will continue to have discussion with patient and family. -Morphine/Ativan as needed for comfort. Laryngeal Ca -Has gotten radiation and been recieiving chemo in [place]. -Cancer has likely infiltrated his R. carotid A. Plan as above COPD -Duonebs PRN as needed for SOB. Trach care HTN -Holding all BP meds as he is bleeding from carotid and likely to become hypotensive HLD -Holding meds due to problem above Angina at rest -Continued ranexa for anginal pain <Domingo Soler - Last Filed: 04/29/17 08:31> Attending Addendum - Attending Addendum Date/Time: 04/29/17 1531 I personally evaluated the patient and discussed the management with Dr. Soler. I agree with the History, Examination, Assessment and Plan documented above with any addition or exceptions noted below. Patient's family is trying to see if he can be transferred to [facility] in [place]. We will continue to give blood products as needed. Will trend h/h. No pulsatile bleeding at this time. Pt is dnr. He has voiced that he would prefer to go home on hospice if [facility] is unable to accept him as a transfer. Will recheck h/h. <Sammi Wesley - Last Filed: 04/29/17 15:33>
[2017-04-29] MEDS: Arformoterol 15 MCG/2 ML NEB NEB SCH ×2 (07:15→18:51)
[2017-04-29 08:14] LABS: Mean Corpuscular HGB CONC 32.2 g/dL (32.0-36.0); Mean Corpuscular Hemoglobin 26.7 pg (27.0-31.0); Mean Corpuscular Volume 82.8 fl (80.0-94.0); Mean Platelet Volume 6.8 fL (7.4-10.4); Platelet Count 386 thou/uL (130-400); RBC Distribution Width 14.9 % (11.5-14.5); Red Blood Cell (RBC) Count 2.98 mill/uL (4.70-6.10); White Blood Cell (WBC) Count 10.3 thou/uL (4.8-10.8)
[2017-04-29] MEDS: Gabapentin 300 MG CAP PO SCH ×2 (09:41→16:50)
[2017-04-29 12:16] LABS: Mean Corpuscular HGB CONC 32.1 g/dL (32.0-36.0); Mean Corpuscular Hemoglobin 26.7 pg (27.0-31.0); Mean Corpuscular Volume 82.9 fl (80.0-94.0); Mean Platelet Volume 6.8 fL (7.4-10.4); Platelet Count 395 thou/uL (130-400); RBC Distribution Width 15.1 % (11.5-14.5); Red Blood Cell (RBC) Count 2.99 mill/uL (4.70-6.10); White Blood Cell (WBC) Count 10.6 thou/uL (4.8-10.8)
--- NOTE | 2017-04-29 13:04 | CON ---
DATE OF CONSULTATION: 04/29/2017 CONSULTING PHYSICIAN: [facility]. REASON FOR CONSULTATION: ICU care. HISTORY OF PRESENT ILLNESS: This is a 57-year-old male with a history of head and neck cancer. 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 He came in last night with bleeding. This was stopped with pressure, Dr. Whitaker apparently put a tracheostomy in. I t is not felt there is anything he can do from an ENT standpoint. The and [facility]. They are frantically trying to get the patient to ENT doctor from [place] to see if ther e is any other intervention that can be had including conversation with the vascular surgeon down the . PAST MEDICAL AND SURGICAL HISTORY: See our previous consultations in the chart. ALLERGIES: See our previous consultations in the chart. PHYSICAL EXAMINATION: VITAL SIGNS: The temperature is 100.3, pulse 110, blood pressure 141/90. HEENT: Unremarkable. NECK: He has a stoma with a tracheostomy in place. He has a bandage over that. Exam was limited as I did not want to pull of any clot. LUNGS: Coarse breath sounds. CARDIAC: S1, S2 regular. ABDOMEN: Soft. LABORATORY DATA: White blood cell count 10.3, hematocrit 24.7, platelet count 386. Sodium 141, pota ssium 3.7, chloride 110, CO2 21, BUN 7, creatinine 1.1. 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 PLAN: There is nothing I can offer from Pulmonary or Critical Care standpoint besides transfusing if he bleeds. Apparently, he is DNR. The patient's daughter and did not like the fact that there was anything that I can offer, in fact the conversation was quite disrespectful on their part toward s me. I have told the charge nurse in the ICU to see if we can facilitate transfer down to [place] through the AD's office. Pulmonary and Critical Care will be available as needed.
[2017-04-29] MEDS: Lorazepam 2 MG/ML VIAL SLOW IVP PRN (17:08)
[2017-04-29 17:47] VITALS: TEMP 98.4
[2017-04-29 18:02] LABS: Hemoglobin 9.1 g/dL (14.0-18.0); Mean Corpuscular HGB CONC 31.8 g/dL (32.0-36.0); Mean Corpuscular Hemoglobin 26.8 pg (27.0-31.0); Mean Corpuscular Volume 84.3 fl (80.0-94.0); Mean Platelet Volume 6.9 fL (7.4-10.4); Platelet Count 397 thou/uL (130-400); RBC Distribution Width 15.1 % (11.5-14.5)
--- NOTE | 2017-04-30 15:11 | DIS-2 ---
DATE OF ADMISSION: 04/28/2017 DATE OF DISCHARGE: 04/29/2017 ADMITTING ATTENDING: Dr. Leyla Bear. DISCHARGE ATTENDING: Dr. Sammi Wesley. RESIDENT: Dr. Domingo Soler, PGY1. CONSULTS: Include core java software engineer, Dr. Isaiah Reyes and ENT, Dr. Gibran Whitaker. PROCEDURES: Trach placed in the stoma. IMAGING: No new imaging. PRIMARY DIAGNOSES: 1. 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 2. Laryngeal squamous cell carcinoma. 3. Chronic obstructive pulmonary disease. 4. Hypertension. 5. Hypothyroidism. 6. Status post laryngectomy. 7. Personal history of esophageal cancer. 8. Angina at rest. DISCHARGE MEDICATIONS: Include Brovana 15 mcg nebulizer b.i.d., Tessalon 200 mg p.o. t.i.d., cyclobe nzaprine 10 mg p.o. t.i.d., diazepam 10 mg p.o. at bedtime, diclofenac 50 mg p.o. daily, Colace 100 m g b.i.d., ferrous sulfate 325 mg p.o. b.i.d., gabapentin 600 mg p.o. t.i.d., hycet 50 mL p.o. q.4 lakeisha rs, DuoNeb p.r.n., 150 mcg of levothyroxine, lorazepam 1 mg slow IVP, morphine 4 mg slow IV push q.2 hours, morphine sulfate 30 mg tablet ER, Zofran 4 mg p.o. and IV q.6 hours as needed, Protonix 40 mg p.o. b.i.d., Compazine 10 mg p.o. q.6 hours, promethazine 5 mL p.o. q.8 hours, ranitidine 150 mg p.o. b.i.d., Ranexa 500 mg p.o. b.i.d. DISCONTINUED MEDICATIONS: We discontinued all his blood pressure medications due to low blood pressu re from acute blood loss. HISTORY OF PRESENT ILLNESS AND BRIEF HOSPITAL COURSE: This is a 57-year-old male who came in after h aving a syncopal episode, fell down and then started having pulsatile blood out of his stoma, came in to the ER again who was having a large amount of bleeding out of his stoma. At this time, the ER con sulted Dr. Whitaker with ENT who came in and placed a trach and packed the area. At that time upon adm ission, his hemoglobin was 7.1. We would then transfer him 2 units of blood due to the acute blood l oss. His vital signs when he came in were heard rate was elevated to 100, his blood pressure was sta ble 150/93 but he would then become hypotensive into the 90s/60s on occasion. We will get 2 units of blood, it was stabilized. It should be noted the patient has been hospitalized multiple times for p neumonia, COPD exacerbations, and bleeding from his stoma recently. He has had multiple CT scans of his neck, which showed a laryngeal tumor growing ever closer to the right carotid artery. There is e maria g suspect on the last time he was admitted on 04/14/2017 that he was developing a fistula towards t he carotid artery. At this time, we did not get any new imaging, but suspected that due to the pulsa tile nature of the bleed and the acute blood loss of his hemoglobin that the patient had, likely suad lly, the tumor had finally infiltrated in his right carotid artery. At this time, I discussed the ca se with Dr. Gibran Whitaker He mentioned that there is likely nothing more we could do for the patient and that we would need to talk to the patient about his plans of care. At this time, I talked to the patient, he was not ready, he wanted to be a DNR, but wanted supportive care. So at this time, we c ontinued watching his vitals. We started fluids at rate of 175. Gave him blood and we only gave him the 2 units, his hemoglobin was stabilized around 8 and then upon transfer would go to 9.1. His blo od pressure would drop a little bit at times, but would stay stable up to the 130s/80s and 120s. His pulse would get tachycardic at times around the low 100s. Never did have a fever. At this time, we admitted in the unit for close observation. We never touched the packing as it seemed to have obtai abigail a little bit of hemostasis overnight. At this time, it was in agreement that we will make the pa candy DNR, but do all supportive care that we could. We talked to him about going home with hospice. Patient was agreeable to this on the day of admission and when we came back in the morning, family had supposedly talked to his ENT doctor and cardiovascular surgeon said he seen in [place] where he had done prior surgeries in [place]. They said that they could possibly put a stent in the patien t and the carotid artery and prevent this bleed. So at this time instead of going home with hospice as we had discussed, we decided at this time to send patient, the [place] agreed to take the patien t on transfer basis. The patient was stable. His hemoglobin was 9.1 on recheck before he left. We continued his fluids. He did not require any more blood only get 2 units while he was here. At this time, we transferred him to [place] with his ENT and Cardiovascular Surgery for possible stent in the carotid artery. DISPOSITION: Very guarded. DISCHARGE LOCATION: Hospital in [place]. ACTIVITY: Bed rest. DIET: N.p.o. at this time. FOLLOWUP: We will need to follow up based [facility]
--- NOTE | 2017-05-02 19:35 | EKG ---
Test Reason : SOB Blood Pressure : / mmHG Vent. Rate : 096 BPM Atrial Rate : 096 BPM P-R Int : 120 ms QRS Dur : 080 ms QT Int : 438 ms P-R-T Axes : 026 053 039 degrees QTc Int : 553 ms Normal sinus rhythm Prolonged QT Abnormal ECG Confirmed by GREER BEST, DAVID Ashford ([id number]), associate editor CRISTIN VARGAS ([id number]) on 05/02/2017 7:35:11 PM Referred By: Confirmed By:DAVID BUTTERFIELD MD
== END 2017-04-29 19:15 | disposition short-term general hospital (02) | DRG 147 ==
LOC: ERS 15:07 → CCU 15:20
PROVIDERS: ADMIT Family Medicine; ATTEND Family Medicine
PROC: 30233N1 Transfusion of Nonautologous Red Blood Cells into Peripheral Vein, Percutaneous Approach (ICD-10-PCS; principal; 2017-04-28)
DX: C32.9 Malignant neoplasm of larynx, unspecified (principal); C15.9 Malignant neoplasm of esophagus, unspecified; D62 Acute posthemorrhagic anemia; D64.9 Anemia, unspecified; E78.5 Hyperlipidemia, unspecified; E03.9 Hypothyroidism, unspecified; I10 Essential (primary) hypertension; I25.10 Atherosclerotic heart disease of native coronary artery without angina pectoris; J44.9 Chronic obstructive pulmonary disease, unspecified; F32.9 Major depressive disorder, single episode, unspecified; Z90.02 Acquired absence of larynx; Z95.5 Presence of coronary angioplasty implant and graft; Z88.8 Allergy status to other drugs, medicaments and biological substances; Z79.82 Long term (current) use of aspirin; Z87.891 Personal history of nicotine dependence; I20.8 Other forms of angina pectoris
CPT/HCPCS: 36415; 36430; 51702; 80053; 81003; 81015; 82330; 82803; 83605; 85025; 85027; 85610; 85730; 86850; 86900; 86901; 93005; 94640; 96361; 96374; 99292; J2060; J2270; P9016

== ENCOUNTER 2017-08-24 22:06 | Emergency (ER) | payer MEDICARE ==
--- NOTE | 2017-08-24 23:48 | RAD ---
RADIOGRAPH CHEST 1 VIEW: Date: 08/24/2017 Time: 10:46 p.m. HISTORY: A 57-year-old male with dyspnea. COMPARISON: 04/14/2017 FINDINGS: The lungs are now hypoinflated. There is a new finding of central basilar interstitial densities michael aterally. A tracheostomy tube has been placed. There is an old left mid-distal clavicular fracture healed deformity. A new finding of small embolization coils just to the right of midline, in the low er neck. No pneumothorax. The lateral costophrenic angles are sharp. There is also a new left subc lavian vascular metallic stent. IMPRESSION: 1. Status post placement of tracheostomy. 2. Status post embolization in the neck. 3. Status post placement of left subclavian vascular stent. 4. Hypoinflation. 5. New finding of central and basilar interstitial densities, etiology uncertain. NEHAL [] POS: RENA
== END 2017-08-24 23:29 | disposition home or self-care (01) ==
LOC: ERS 22:06
DX: J18.9 Pneumonia, unspecified organism (principal); E03.9 Hypothyroidism, unspecified; J44.9 Chronic obstructive pulmonary disease, unspecified; E78.5 Hyperlipidemia, unspecified; I10 Essential (primary) hypertension; F41.9 Anxiety disorder, unspecified; F32.9 Major depressive disorder, single episode, unspecified; G89.29 Other chronic pain; M54.9 Dorsalgia, unspecified; Z87.891 Personal history of nicotine dependence; Z79.899 Other long term (current) drug therapy; Z85.818 Personal history of malignant neoplasm of other sites of lip, oral cavity, and pharynx; Z85.01 Personal history of malignant neoplasm of esophagus
CPT/HCPCS: 71045